=== PATIENT | male | born 1930 | race Caucasian/White ===

== ENCOUNTER 2017-03-13 05:23 | Emergency (ER) | payer MEDICARE, OTHER ==
[~2017-03-13] VITALS: Ht 177.8 cm; Wt 95.3 kg
--- OUTSIDE RECORDS SUMMARY | 2017-03-13 05:29 | XMS REPORT | Continuity of Care Document ---
Author Author [facility] Organization [facility] Address Unknown Phone Unavailable Allergies Medications Problems Procedures Results Encounters ACCT No. Visit Date/Time Discharge Status Pt. Type Provider Facility Loc./Unit Complaint [id number] 10/27/2013 09:48:00 2013 15:07:00 DIS Outpatient [id number] 03/13/2017 05:25:00 ACT Emergency LUCA ÁLVAREZ, NICOLLE Niño [facility] ER SICK X 5 DAYS,FEVERISH,COUGH
--- NOTE | 2017-03-13 05:46 | ED Fever ---
History of Present Illness General Stated Complaint: SICK X 5 DAYS,FEVERISH,COUGH Source: patient, family, EMS Exam Limitations: no limitations (NICOLLE CONNOLLY) History of Present Illness Time seen by provider: 05:33 Initial Comments Patient presents to ER by EMS with a chief complaint of shortness of breath and abdominal pain progressively worsening over the past 5 or 6 days. EMS reports they picked him up from the home and he was able to transfer the gurney with minimal assist. Blood pressure is elevated and they put an IV in him but were unable to get blood. He is on his home dose of 2 L oxygen by nasal cannula and satting in the mid 90s. He describes body aches, chills, cough that is productive of phlegm and mild shortness of breath on exertion. He denies chest pain but he says is had quite a bit of belly pain diffusely ever since he had some nausea and vomiting last to 3 days. He is also had 3 or 4 days ago several bowel movements that were not loose but since that time he's been anorexic and has not had any bowel movements in the last 2 days. Patient also states in the last several months she's lost about 25 pounds. He is on warfarin 5 mg a night and has some bruising all over his body secondary to that but denies any falls in the last year. (NICOLLE CONNOLLY) Allergies and Home Medications Allergies Coded Allergies: No Known Drug Allergies (Unverified , 03/13/17) Home Medications Amlodipine Besylate 10 Mg Tablet, 10 MG PO DAILY, (Reported) Diclofenac Sodium 75 Mg Tablet.dr, 75 MG PO BID, (Reported) Furosemide 20 Mg Tablet, 20 MG PO DAILY, (Reported) Warfarin Sodium 5 Mg Tablet, 5 MG PO DAILY, (Reported) Constitutional: chills, No diaphoresis, fever, malaise EENTM: No ear discharge, No ear pain Respiratory: cough, phlegm, short of breath, No wheezing Cardiovascular: No chest pain, No palpitations Gastrointestinal: abdominal pain, No constipation (diffusely), No diarrhea, nausea, vomiting Genitourinary: No discharge, No dysuria Musculoskeletal: No back pain, No joint pain Skin: No pruritus, No rash Psychiatric/Neurological: Denies Headache, Denies Numbness, Denies Paresthesia Hematologic/Lymphatic: Easy Bleeding, Easy Bruising (NICOLLE CONNOLLY) Past Buyitdq-Oftycc-Gigazf Hx Patient Social History Recent Foreign Travel: No Contact w/Someone Who Travel: No (NICOLLE CONNOLLY) Physical Exam Vital Signs Vital Sign - Last 12Hours 03/13/17 03/13/17 03/13/17 05:29 05:35 06:01 Temp 99.2 Pulse 104 Resp 20 B/P (MAP) 201/100 Pulse Ox 97 O2 Delivery Room Air O2 Flow Rate 2.00 (RUKHSANA SCOTT MD) Vital Signs Capillary Refill : (NICOLLE CONNOLLY) General Appearance: WD/WN, mild distress Eyes: Bilateral Eye Normal Inspection, Bilateral Eye PERRL, Bilateral Eye EOMI HEENT: PERRL/EOMI, normal ENT inspection, pharynx normal, other (hearing aids bilaterally) Neck: non-tender, full range of motion, normal inspection Respiratory: chest non-tender, no respiratory distress, no accessory muscle use , decreased breath sounds, other (coughing with clear phlegm) Cardiovascular: normal peripheral pulses, regular rate, rhythm, no murmur Gastrointestinal: normal bowel sounds, guarding, tenderness (all 4 quadrants) Extremities: non-tender, normal inspection, normal capillary refill Neurologic/Psychiatric: alert, oriented x 3 Skin: normal color, warm/dry (NICOLLE CONNOLLY) Focused Exam Evaluation Lactate Level Laboratory Tests 03/13/17 05:42: Lactic Acid Level 1.29 (RUKHSANA SCOTT MD) Lactic Acid Level Laboratory Tests Test 03/13/17 05:42 Lactic Acid Level 1.29 MMOL/L (0.50-2.00) (RUKHSANA SCOTT MD) Progress/Results/Core Measures Suspected Sepsis SIRS Temperature: Pulse: Respiratory Rate: Laboratory Tests 03/13/17 05:42: White Blood Count 9.1 Blood Pressure / Mean: Laboratory Tests 03/13/17 05:42: Lactic Acid Level 1.29 Laboratory Tests 03/13/17 05:42: Creatinine 0.85, INR Comment 1.6H, Platelet Count 203, Total Bilirubin 0.9 (NICOLLE CONNOLLY) Results/Orders Lab Results Laboratory Tests Test 03/13/17 05:38 03/13/17 05:42 Range/Units Urine Color YELLOW Urine Clarity CLEAR Urine pH 6 5-9 Urine Specific [place] 1.020 1.016-1.022 Urine Protein NEGATIVE NEGATIVE Urine Glucose (UA) NEGATIVE NEGATIVE Urine Ketones 2+ H NEGATIVE Urine Nitrite NEGATIVE NEGATIVE Urine Bilirubin NEGATIVE NEGATIVE Urine Urobilinogen 1 NORMAL MG/DL Urine Leukocyte Esterase NEGATIVE NEGATIVE Urine RBC (Auto) NEGATIVE NEGATIVE Urine RBC NONE /HPF Urine WBC RARE /HPF Urine Squamous Epithelial Cells RARE /HPF Urine Crystals NONE /LPF Urine Bacteria NEGATIVE /HPF Urine Casts NONE /LPF Urine Mucus SMALL H /LPF Urine Culture Indicated NO White Blood Count 9.1 4.3-11.0 10^3/uL Red Blood Count 4.10 L 4.35-5.85 10^6/uL Hemoglobin 13.2 L 13.3-17.7 G/DL Hematocrit 38 L 40-54 % Mean Corpuscular Volume 94 80-99 FL Mean Corpuscular Hemoglobin 32 25-34 PG Mean Corpuscular Hemoglobin Concent 34 32-36 G/DL Red Cell Distribution Width 14.1 10.0-14.5 % Platelet Count 203 130-400 10^3/uL Mean Platelet Volume 11.5 H 7.4-10.4 FL Neutrophils (%) (Auto) 59 42-75 % Lymphocytes (%) (Auto) 30 12-44 % Monocytes (%) (Auto) 9 0-12 % Eosinophils (%) (Auto) 2 0-10 % Basophils (%) (Auto) 1 0-10 % Neutrophils # (Auto) 5.3 1.8-7.8 X 10^3 Lymphocytes # (Auto) 2.7 1.0-4.0 X 10^3 Monocytes # (Auto) 0.8 0.0-1.0 X 10^3 Eosinophils # (Auto) 0.2 0.0-0.3 10^3/uL Basophils # (Auto) 0.1 0.0-0.1 10^3/uL Prothrombin Time 19.5 H 12.2-14.7 SEC INR Comment 1.6 H 0.8-1.4 Activated Partial Thromboplast Time 28 24-35 SEC Sodium Level 143 135-145 MMOL/L Potassium Level 3.8 3.6-5.0 MMOL/L Chloride Level 112 H 98-107 MMOL/L Carbon Dioxide Level 21 21-32 MMOL/L Anion Gap 10 5-14 MMOL/L Blood Urea Nitrogen 18 7-18 MG/DL Creatinine 0.85 0.60-1.30 MG/DL Estimat Glomerular Filtration Rate > 60 BUN/Creatinine Ratio 21 Glucose Level 100 70-105 MG/DL Lactic Acid Level 1.29 0.50-2.00 MMOL/L Calcium Level 8.1 L 8.5-10.1 MG/DL Total Bilirubin 0.9 0.1-1.0 MG/DL Aspartate Amino Transf (AST/SGOT) 28 5-34 U/L Alanine Aminotransferase (ALT/SGPT) 25 0-55 U/L Alkaline Phosphatase 98 40-136 U/L Total Creatine Kinase 78 30-200 U/L B-Type Natriuretic Peptide 96.0 <100.0 PG/ML Total Protein 5.8 L 6.4-8.2 GM/DL Albumin 3.0 L 3.2-4.5 GM/DL (RUKHSANA SCOTT MD) Micro Results Microbiology 03/13/17 Influenza Types A,B Antigen (OCTAVIO) - Final, Complete (RUKHSANA SCOTT MD) My Orders Orders - RUKHSANA SCOTT MD Dexamethasone Pf Injection (Decadron Pf (03/13/17 07:32) (RUKHSANA SOCTT MD) Medications Given in ED Current Medications Medications Dose Ordered Sig/Pasquale Route Start Time Stop Time Status Last Admin Dose Admin Albuterol/ Ipratropium 3 ml ONCE ONCE INH 03/13/17 05:45 03/13/17 05:46 DC 03/13/17 06:01 3 ML Sodium Chloride 50 ml @ ud STK-MED ONCE .ROUTE 03/13/17 05:44 03/13/17 05:54 DC 03/13/17 07:23 0 MLS/HR Sodium Chloride 500 ml @ 0 mls/hr Q0M ONCE IV 03/13/17 05:37 03/13/17 05:41 DC 03/13/17 05:59 0 MLS/HR (RUKHSANA SCOTT MD) Vital Signs/I&O Vital Sign - Last 12Hours 03/13/17 03/13/17 03/13/17 05:29 05:35 06:01 Temp 99.2 Pulse 104 Resp 20 B/P (MAP) 201/100 Pulse Ox 97 O2 Delivery Room Air Nasal Cannula Nasal Cannula O2 Flow Rate 2.00 2.00 (RUKHSANA SCOTT MD) Vital Signs/I&O Capillary Refill : (NICOLLE CONNOLLY) Progress Note : Time: 05:48 Progress Note Diffuse abdominal pain could be due to his recent nausea and bowel movements however its very exquisitely tender so we'll obtain CT abdomen without contrast. We'll start some fluids cautiously we'll get a BNP on him and CBC and lactate workup for possible sepsis. His upper respiratory symptoms may be explained by influenza or other viral illness. We'll grab a chest x-ray looking for possible pneumonia. (NICOLLE CONNOLLY) Progress Note : Progress Note 0 610: I assumed care of the patient from Dr. Connolly pending labs and CT. Patient is requesting this today but we currently don't have admission criteria. We will reevaluate after all data is complete. (RUKHSANA SCOTT MD) Diagnostic Imaging Diagonstic Imaging: CT Plain Films/CT/US/NM/MRI: abdomen, pelvis (c/O) Reviewed: Reviewed [place] Study, Reviewed by Me Diagonstic Imaging: Xray Plain Films/CT/US/NM/MRI: chest (1v) Reviewed: Reviewed by Me Comments Poor inspiratory effort. No acute cardio pulmonary processes. (NICOLLE CONNOLLY) Comments [facility] [place] NAME: GIULIANO RICKETTS [facility] REC#: [id number] PT STATUS: REG ER : 1930 PHYSICIAN: NICOLLE CONNOLLY MD ADMIT DATE: 03/13/17/ER Draft Date of Exam:03/13/17 CT ABDOMEN/PELVIS WO PROCEDURE: CT abdomen and pelvis without contrast. TECHNIQUE: Multiple contiguous axial images were obtained through the abdomen and pelvis without the use of intravenous contrast. INDICATION: Abdominal pain, flu symptoms. COMPARISON: None. FINDINGS: Lung bases are clear. There is mild cardiac enlargement. The gallbladder is surgically absent. There is a 4 cm cyst on the inferior pole of the left pelvic kidney. Otherwise, solid organs and vascular structures are unremarkable. Gallbladder is surgically absent. There are few diverticuli of the sigmoid colon without diverticulitis. There is no bowel obstruction, free air or free fluid. There is some minimal constipation in the distal colon. No inflammatory process is seen. Osseous structures are age-appropriate. No overt prostate enlargement is identified. IMPRESSION: 1. Surgically absent gallbladder. 2. Diverticulosis of the sigmoid colon without diverticulitis. 3. Mild constipation without obstruction. 4. Left pelvic kidney with 4 cm benign cyst. 5. 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 Agree with preliminary report. Dictated on workstation # [id number] Dict: 03/13/17 07 Trans: 03/13/17 [id number] [id number] Interpreted by: JOSEPH BARFIELD Electronically signed by: Comments [facility]. [place], [place] NAME: GIULIANO RICKETTS [facility] REC#: [id number] PT STATUS: REG ER : 1930 PHYSICIAN: NICOLLE CONNOLLY MD ADMIT DATE: 03/13/17/ER Draft Date of Exam:03/13/17 CHEST 1 VIEW, AP/PA ONLY INDICATION: Flulike symptoms. COMPARISON: None. FINDINGS: Single view of the chest demonstrates basilar atelectasis and trace effusion. The heart is prominent without pulmonary edema. There is no pneumothorax. IMPRESSION: Bibasilar atelectasis with trace effusion. Followup with 2 views recommended. Dictated on workstation # [id number] Dict: 03/13/17 0656 Trans: 03/13/17 07[facility] [id number] Interpreted by: JOSEPH BARFIELD Electronically signed by: (RUKHSANA SCOTT MD) Transfer of Care Transfer of Care Time: 06:10 Care transferred to: Jaime (NICOLLE CONNOLLY) Departure Impression Impression: Primary Impression: Upper respiratory infection Qualified Codes: J06.9 - Acute upper respiratory infection, unspecified Additional Impression: Fever Qualified Codes: R50.9 - Fever, unspecified Disposition: 01 HOME, SELF-CARE Condition: Improved Departure-Patient Inst. Decision time for Depature: 07:48 (RUKHSANA SCOTT MD) Referrals: GERALD ROJO MD (PCP) Primary Care Physician Patient Instructions: Bacterial Upper Respiratory Infection, Adult (DC), Sinusitis, Adult (DC) Add. Discharge Instructions: Take medications as directed. Follow-up with your tomorrow or next week for recheck and further evaluation. You do need to get a chest x-ray in the next week or so to recheck your lungs as there was a question of a small amount of atelectasis or fluid at the base of the lungs. No obvious pneumonia was noted though. Return for worse pain, fever, vomiting, weakness, breathing problems or other concerns as needed. Copy Copies To 1: GERALD ROJO MD, TITUS J Mar 13, 2017 05:46 RUKHSANA SCOTT MD Mar 13, 2017 07:46
[2017-03-13] MEDS: NS IV 500 ML 500 ML IV ONE (05:59)
[2017-03-13] MEDS: RT-ALBUTEROL/IPRATROPIUM 3 ML (DUONEB) VIAL INH ONE (06:01)
[2017-03-13] MEDS: RT-ALBUTEROL SULF 2.5 MG/3 ML PRE-MIX VIAL INH STA (06:01)
[2017-03-13 06:04] LABS: BASOPHILS # (AUTO) 0.1 10^3/uL (0.0-0.1); BASOPHILS % (AUTO) 1 % (0-10); EOSINOPHILS # (AUTO) 0.2 10^3/uL (0.0-0.3); EOSINOPHILS % (AUTO) 2 % (0-10); LYMPHOCYTES # (AUTO) 2.7 X 10^3 (1.0-4.0); LYMPHOCYTES % (AUTO) 30 % (12-44); MEAN CORPUSCULAR HEMOGLOBIN 32 PG (25-34); MEAN CORPUSCULAR HGB CONC 34 G/DL (32-36); MEAN CORPUSCULAR VOLUME 94 FL (80-99); MEAN PLATELET VOLUME 11.5 FL (7.4-10.4); MONOCYTES # (AUTO) 0.8 X 10^3 (0.0-1.0); MONOCYTES % (AUTO) 9 % (0-12); NEUTROPHILS # (AUTO) 5.3 X 10^3 (1.8-7.8); NEUTROPHILS % (AUTO) 59 % (42-75); PLATELET COUNT 203 10^3/uL (130-400); RED CELL DISTRIBUTION WIDTH 14.1 % (10.0-14.5); WHITE BLOOD COUNT 9.1 10^3/uL (4.3-11.0)
[2017-03-13 06:16] LABS: ALANINE AMINOTRANSFERASE 25 U/L (0-55); ANION GAP 10 MMOL/L (5-14); ASPARTATE AMINO TRANSFERASE 28 U/L (5-34); BILIRUBIN,TOTAL 0.9 MG/DL (0.1-1.0); BLOOD UREA NITROGEN 18 MG/DL (7-18); BUN/CREATININE RATIO 21; CALCIUM 8.1 MG/DL (8.5-10.1); CARBON DIOXIDE 21 MMOL/L (21-32); CHLORIDE 112 MMOL/L (98-107); CREATININE SERUM 0.85 MG/DL (0.60-1.30); GFR ESTIMATED > 60; GLUCOSE 100 MG/DL (70-105); POTASSIUM 3.8 MMOL/L (3.6-5.0); SODIUM 143 MMOL/L (135-145); TOTAL PROTEIN 5.8 GM/DL (6.4-8.2)
[2017-03-13 06:17] LABS: INR 1.6 (0.8-1.4); PROTHROMBIN TIME PATIENT 19.5 SEC (12.2-14.7)
[2017-03-13 06:18] LABS: BILIRUBIN,URINE NEGATIVE (NEGATIVE); KETONES,URINE 2+ (NEGATIVE); LEUKOCYTE ESTERASE ,URINE NEGATIVE (NEGATIVE); NITRITE,URINE NEGATIVE (NEGATIVE); PH,URINE 6 (5-9); PROTEIN,URINE NEGATIVE (NEGATIVE); UROBILINOGEN,URINE 1 MG/DL (NORMAL)
[2017-03-13 06:25] LABS: SQUAMOUS EPITHELIAL CELL,UR RARE /HPF; WBC,URINE RARE /HPF
--- NOTE | 2017-03-13 07:12 | Diagnostic Imaging Report ---
INDICATION: Flulike symptoms. COMPARISON: None. FINDINGS: Single view of the chest demonstrates basilar atelectasis and trace effusion. The heart is prominent without pulmonary edema. There is no pneumothorax. IMPRESSION: Bibasilar atelectasis with trace effusion. Followup with 2 views recommended. Dictated by: Dictated on workstation # [id number]
[2017-03-13] MEDS: NS (IVPB) 50 ML ONE (07:23)
[2017-03-13] MEDS: cefTRIAXone 1 GM (ROCEPHIN) VIAL IV STA (07:23)
[2017-03-13] MEDS ORDERED: WARF5TAB PO (07:32)
[2017-03-13] MEDS ORDERED: DEXAMETHASONE PF 10 MG/ML (DECADRON) VIAL IV STA (07:32)
[2017-03-13] MEDS ORDERED: DICL75TA2 PO (07:32)
[2017-03-13] MEDS ORDERED: FURO20TA4 PO (07:32)
[2017-03-13] MEDS ORDERED: AMLO10TA2 PO (07:32)
--- NOTE | 2017-03-13 07:34 | Diagnostic Imaging Report ---
PROCEDURE: CT abdomen and pelvis without contrast. TECHNIQUE: Multiple contiguous axial images were obtained through the abdomen and pelvis without the use of intravenous contrast. INDICATION: Abdominal pain, flu symptoms. COMPARISON: None. FINDINGS: Lung bases are clear. There is mild cardiac enlargement. The gallbladder is surgically absent. There is a 4 cm cyst on the inferior pole of the left pelvic kidney. Otherwise, solid organs and vascular structures are unremarkable. Gallbladder is surgically absent. There are few diverticuli of the sigmoid colon without diverticulitis. There is no bowel obstruction, free air or free fluid. There is some minimal constipation in the distal colon. No inflammatory process is seen. Osseous structures are age-appropriate. No overt prostate enlargement is identified. IMPRESSION: 1. Surgically absent gallbladder. 2. Diverticulosis of the sigmoid colon without diverticulitis. 3. Mild constipation without obstruction. 4. Left pelvic kidney with 4 cm benign cyst. 5. 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 Agree with preliminary report. Dictated by: Dictated on workstation # [id number]
[2017-03-13] MEDS: DEXAMETHASONE 10 MG/ML (DECADRON) 1 ML VIAL ONE (08:00)
[2017-03-13 08:23] VITALS: BP 161/91
== END 2017-03-13 08:23 | disposition home or self-care (01) ==
LOC: EDUNIT# 05:23 → ER 05:25
DX: J06.9 Acute upper respiratory infection, unspecified (principal); Z79.01 Long term (current) use of anticoagulants
CPT/HCPCS: 36415; 71010; 74176; 80053; 81000; 82550; 83605; 83880; 85025; 85610; 85730; 87040; 87804; 94640

== ENCOUNTER 2017-06-23 22:02 | Inpatient (IN) | payer MEDICARE, OTHER ==
[~2017-06-23] VITALS: Ht 172.7 cm; Wt 92.3 kg
[~2017-06-23 22:02] MED LIST: AMLO10TA2 PO; DICL75TA2 PO; FURO20TA4 PO; WARF5TAB PO
--- OUTSIDE RECORDS SUMMARY | 2017-06-23 22:07 | XMS REPORT | Continuity of Care Document ---
Author Author [facility] Organization [facility] Address Unknown Phone Unavailable Allergies Active Description Code Type Severity Reaction Onset Reported/Identified Relationship to Patient Clinical Status Yes No Known Drug Allergies [id number] Drug Allergy Unknown N/A 03/13/2017 Medications There is no data. Problems Date Dx Coded Attending Type Code Diagnosis Diagnosed By 03/13/2017 RUKHSANA SCOTT MD Ot J06.9 ACUTE UPPER RESPIRATORY INFECTION, UNSPE 03/13/2017 RUKHSANA SCOTT MD Ot R06.02 SHORTNESS OF BREATH 03/13/2017 RUKHSANA SCOTT MD Ot Z79.01 RESIDENTIAL (CURRENT) USE OF ANTICOAGULANT Procedures There is no data. Results Test Result Range Complete urinalysis with reflex to culture - 03/13/17 05:38 Urine color determination YELLOW NRG Urine clarity determination CLEAR NRG Urine pH measurement by test strip 6 5-9 Specific gravity of urine by test strip 1.020 1.016- 1.022 Urine protein assay by test strip, semi-quantitative NEGATIVE NEGATIVE Urine glucose detection by automated test strip NEGATIVE NEGATIVE Erythrocytes detection in urine sediment by light microscopy NEGATIVE NEGATIVE Urine ketones detection by automated test strip 2+ NEGATIVE Urine nitrite detection by test strip NEGATIVE NEGATIVE Urine total bilirubin detection by test strip NEGATIVE NEGATIVE Urine urobilinogen measurement by automated test strip (mass/volume) 1 mg/dL NORMAL Urine leukocyte esterase detection by dipstick NEGATIVE NEGATIVE Automated urine sediment erythrocyte count by microscopy (number/high power field) NONE NRG Automated urine sediment leukocyte count by microscopy (number/high power field ) RARE NRG Bacteria detection in urine sediment by light microscopy NEGATIVE NRG Squamous epithelial cells detection in urine sediment by light microscopy RARE NRG Crystals detection in urine sediment by light microscopy NONE NRG Casts detection in urine sediment by light microscopy NONE NRG Mucus detection in urine sediment by light microscopy SMALL NRG Complete urinalysis with reflex to culture NO NRG Complete blood count (CBC) with automated white blood cell (WBC) differential - 03/13/17 05:42 Blood leukocytes automated count (number/volume) 9.1 10*3/uL 4.3-11.0 Blood erythrocytes automated count (number/volume) 4.10 10*6/uL 4.35-5.85 Venous blood hemoglobin measurement (mass/volume) 13.2 g/dL 13.3-17.7 Blood hematocrit (volume fraction) 38 % 40-54 Automated erythrocyte mean corpuscular volume 94 [foz_us] 80-99 Automated erythrocyte mean corpuscular hemoglobin (mass per erythrocyte) 32 pg 25-34 Automated erythrocyte mean corpuscular hemoglobin concentration measurement ( mass/volume) 34 g/dL 32-36 Automated erythrocyte distribution width ratio 14.1 % 10.0-14.5 Automated blood platelet count (count/volume) 203 10*3/uL 130-400 Automated blood platelet mean volume measurement 11.5 [foz_us] 7.4-10.4 Automated blood neutrophils/100 leukocytes 59 % 42-75 Automated blood lymphocytes/100 leukocytes 30 % 12-44 Blood monocytes/100 leukocytes 9 % 0-12 Automated blood eosinophils/100 leukocytes 2 % 0-10 Automated blood basophils/100 leukocytes 1 % 0-10 Blood neutrophils automated count (number/volume) 5.3 10*3 1.8-7.8 Blood lymphocytes automated count (number/volume) 2.7 10*3 1.0-4.0 Blood monocytes automated count (number/volume) 0.8 10*3 0.0-1.0 Automated eosinophil count 0.2 10*3/uL 0.0-0.3 Automated blood basophil count (count/volume) 0.1 10*3/uL 0.0-0.1 Comprehensive metabolic panel - 03/13/17 05:42 Serum or plasma sodium measurement (moles/volume) 143 mmol/L 135-145 Serum or plasma potassium measurement (moles/volume) 3.8 mmol/L 3.6-5.0 Serum or plasma chloride measurement (moles/volume) 112 mmol/L 98-107 Carbon dioxide 21 mmol/L 21-32 Serum or plasma anion gap determination (moles/volume) 10 mmol/L 5-14 Serum or plasma urea nitrogen measurement (mass/volume) 18 mg/dL 7-18 Serum or plasma creatinine measurement (mass/volume) 0.85 mg/dL 0.60-1.30 Serum or plasma urea nitrogen/creatinine mass ratio 21 NRG Serum or plasma creatinine measurement with calculation of estimated glomerular filtration rate > NRG Serum or plasma glucose measurement (mass/volume) 100 mg/dL 70-105 Serum or plasma calcium measurement (mass/volume) 8.1 mg/dL 8.5-10.1 Serum or plasma total bilirubin measurement (mass/volume) 0.9 mg/dL 0.1-1.0 Serum or plasma alkaline phosphatase measurement (enzymatic activity/volume) 98 U/L 40-136 Serum or plasma aspartate aminotransferase measurement (enzymatic activity/ volume) 28 U/L 5-34 Serum or plasma alanine aminotransferase measurement (enzymatic activity/volume ) 25 U/L 0-55 Serum or plasma protein measurement (mass/volume) 5.8 g/dL 6.4-8.2 Serum or plasma albumin measurement (mass/volume) 3.0 g/dL 3.2-4.5 Blood lactic acid measurement (moles/volume) - 03/13/17 05:42 Blood lactic acid measurement (moles/volume) 1.29 mmol/L 0.50-2.00 PT panel in platelet poor plasma by coagulation assay - 03/13/17 05:42 Prothrombin time (PT) in platelet poor plasma by coagulation assay 19.5 s 12.2-14.7 INR in platelet poor plasma or blood by coagulation assay 1.6 0.8-1.4 Activated partial thromboplastin time (aPTT) in platelet poor plasma bycoagulation assay - 03/13/17 05:42 Activated partial thromboplastin time (aPTT) in platelet poor plasma bycoagulation assay 28 s 24-35 Serum or plasma creatine kinase measurement (enzymatic activity/volume) - 03/13 05:42 Serum or plasma creatine kinase measurement (enzymatic activity/volume) 78 U/L 30-200 Serum or plasma lithium measurement (moles/volume) - 03/13/17 05:42 BNP level 96.0 pg/mL <100.0 Bacterial blood culture - 03/13/17 05:42 QUANTITY OF GROWTH Isolated [facility] Bacterial blood culture [id number] [facility] Bacterial blood culture - 03/13/17 06:10 Bacterial blood culture NG [facility] Influenza virus A and B antigen detection - 03/13/17 06:46 FLU RESULT NEGATIVE FOR INFLUENZA A AND B ANTIGENS BY IA NRG Encounters ACCT No. Visit Date/Time Discharge Status Pt. Type Provider Facility Loc./Unit Complaint [id number] 03/13/2017 05:25:00 03/13/2017 08:23:00 DIS Emergency SONIA ÁLVAREZ, RUKHSANA [place] [facility] ER SICK X 5 DAYS,FEVERISH ,COUGH [id number] 10/27/2013 09:48:00 12/09/2013 15:07:00 DIS Outpatient
[2017-06-23 22:41] LABS: BILIRUBIN,URINE NEGATIVE (NEGATIVE); CLARITY,URINE CLEAR; COLOR,URINE YELLOW; GLUCOSE, URINE (UA) NEGATIVE (NEGATIVE); KETONES,URINE NEGATIVE (NEGATIVE); LEUKOCYTE ESTERASE ,URINE NEGATIVE (NEGATIVE); NITRITE,URINE NEGATIVE (NEGATIVE); PH,URINE 8 (5-9); PROTEIN,URINE NEGATIVE (NEGATIVE); UROBILINOGEN,URINE NORMAL (NORMAL)
[2017-06-23 22:44] LABS: BASOPHILS # (AUTO) 0.1 10^3/uL (0.0-0.1); BASOPHILS % (AUTO) 1 % (0-10); EOSINOPHILS # (AUTO) 0.3 10^3/uL (0.0-0.3); EOSINOPHILS % (AUTO) 4 % (0-10); HEMATOCRIT 35 % (40-54); HEMOGLOBIN 11.8 G/DL (13.3-17.7); LYMPHOCYTES # (AUTO) 1.5 X 10^3 (1.0-4.0); LYMPHOCYTES % (AUTO) 21 % (12-44); MEAN CORPUSCULAR HEMOGLOBIN 33 PG (25-34); MEAN CORPUSCULAR HGB CONC 34 G/DL (32-36); MEAN CORPUSCULAR VOLUME 98 FL (80-99); MEAN PLATELET VOLUME 10.4 FL (7.4-10.4); MONOCYTES # (AUTO) 1.1 X 10^3 (0.0-1.0); MONOCYTES % (AUTO) 15 % (0-12); NEUTROPHILS # (AUTO) 4.2 X 10^3 (1.8-7.8); NEUTROPHILS % (AUTO) 59 % (42-75); PLATELET COUNT 202 10^3/uL (130-400); RED CELL DISTRIBUTION WIDTH 13.8 % (10.0-14.5); WHITE BLOOD COUNT 7.2 10^3/uL (4.3-11.0)
[2017-06-23] MEDS ORDERED: RT-ALBUTEROL/IPRATROPIUM 3 ML (DUONEB) VIAL INH ONE (22:45)
[2017-06-23 22:49] LABS: BACTERIA,URINE NEGATIVE /HPF; RBC,URINE 0-2 /HPF
[2017-06-23 22:53] LABS: INR 2.1 (0.8-1.4); PROTHROMBIN TIME PATIENT 23.8 SEC (12.2-14.7)
[2017-06-23 22:54] LABS: ALANINE AMINOTRANSFERASE 47 U/L (0-55); ALBUMIN 3.2 GM/DL (3.2-4.5); ALKALINE PHOSPHATASE 153 U/L (40-136); BILIRUBIN,TOTAL 0.4 MG/DL (0.1-1.0); BUN/CREATININE RATIO 17; CALCIUM 8.6 MG/DL (8.5-10.1); CARBON DIOXIDE 24 MMOL/L (21-32); CHLORIDE 107 MMOL/L (98-107); GFR ESTIMATED > 60; GLUCOSE 115 MG/DL (70-105); POTASSIUM 4.5 MMOL/L (3.6-5.0); SODIUM 139 MMOL/L (135-145); TOTAL PROTEIN 6.1 GM/DL (6.4-8.2)
[2017-06-23] MEDS ORDERED: cefTRIAXone 1 GM (ROCEPHIN) VIAL ONE (23:43)
[2017-06-23] MEDS ORDERED: NS (IVPB) 50 ML ONE (23:43)
[2017-06-23] MEDS ORDERED: cefTRIAXone INJECTION 1,000 MG in NS (IVPB) 50 ML IV ONE (23:45)
[2017-06-23] MEDS ORDERED: FUROSEMIDE 40 MG/4 ML INJ (LASIX) IVP ONE (23:45)
[2017-06-23] MEDS ORDERED: methylPREDNISolone 125 MG (Solu-MEDROL) VIAL IVP ONE (23:45)
[2017-06-24] VITALS (9 sets, daily range): BP systolic 117–161; BP diastolic 60–80
--- OUTSIDE RECORDS SUMMARY | 2017-06-24 00:42 | XMS REPORT | Continuity of Care Document ---
Author Author [facility] Organization [facility] Address Unknown Phone Unavailable Allergies Active Description Code Type Severity Reaction Onset Reported/Identified Relationship to Patient Clinical Status Yes No Known Drug Allergies [id number] Drug Allergy Unknown N/A 03/13/2017 Medications There is no data. Problems Date Dx Coded Attending Type Code Diagnosis Diagnosed By 03/13/2017 RUKHSANA SCOTT MD Ot J06.9 ACUTE UPPER RESPIRATORY INFECTION, UNSPE 03/13/2017 RUKHSANA SCOTT MD Ot R06.02 SHORTNESS OF BREATH 03/13/2017 RUKHSANA SCOTT MD Ot Z79.01 RETIREMENT (CURRENT) USE OF ANTICOAGULANT Procedures There is [...] - 03/13/17 05:42 QUANTITY OF GROWTH Isolated [facility] Bacterial blood culture [id number] [facility] Bacterial blood culture - 03/13/17 06:10 Bacterial blood culture NG [facility] Influenza virus A and B antigen detection - 03/13/17 06:46 FLU RESULT NEGATIVE FOR INFLUENZA A AND B ANTIGENS BY IA [facility] Complete blood count (CBC) with automated white blood cell (WBC) differential - 06/23/17 22:14 Blood leukocytes automated count (number/volume) 7.2 10*3/uL 4.3-11.0 Blood erythrocytes automated count (number/volume) 3.60 10*6/uL 4.35-5.85 Venous blood hemoglobin measurement (mass/volume) 11.8 g/dL 13.3-17.7 Blood hematocrit (volume fraction) 35 % 40-54 Automated erythrocyte mean corpuscular volume 98 [foz_us] 80-99 Automated erythrocyte mean corpuscular hemoglobin (mass per erythrocyte) 33 pg 25-34 Automated erythrocyte mean corpuscular hemoglobin concentration measurement ( mass/volume) 34 g/dL 32-36 Automated erythrocyte distribution width ratio 13.8 % 10.0-14.5 Automated blood platelet count (count/volume) 202 10*3/uL 130-400 Automated blood platelet mean volume measurement 10.4 [foz_us] 7.4-10.4 Automated blood neutrophils/100 leukocytes 59 % 42-75 Automated blood lymphocytes/100 leukocytes 21 % 12-44 Blood monocytes/100 leukocytes 15 % 0-12 Automated blood eosinophils/100 leukocytes 4 % 0-10 Automated blood basophils/100 leukocytes 1 % 0-10 Blood neutrophils automated count (number/volume) 4.2 10*3 1.8-7.8 Blood lymphocytes automated count (number/volume) 1.5 10*3 1.0-4.0 Blood monocytes automated count (number/volume) 1.1 10*3 0.0-1.0 Automated eosinophil count 0.3 10*3/uL 0.0-0.3 Automated blood basophil count (count/volume) 0.1 10*3/uL 0.0-0.1 Blood lactic acid measurement (moles/volume) - 06/23/17 22:14 Blood lactic acid measurement (moles/volume) 1.22 mmol/L 0.50-2.00 Comprehensive metabolic panel - 06/23/17 22:14 Serum or plasma sodium measurement (moles/volume) 139 mmol/L 135-145 Serum or plasma potassium measurement (moles/volume) 4.5 mmol/L 3.6-5.0 Serum or plasma chloride measurement (moles/volume) 107 mmol/L 98-107 Carbon dioxide 24 mmol/L 21-32 Serum or plasma anion gap determination (moles/volume) 8 mmol/L 5-14 Serum or plasma urea nitrogen measurement (mass/volume) 19 mg/dL 7-18 Serum or plasma creatinine measurement (mass/volume) 1.10 mg/dL 0.60-1.30 Serum or plasma urea nitrogen/creatinine mass ratio 17 NRG Serum or plasma creatinine measurement with calculation of estimated glomerular filtration rate > NRG Serum or plasma glucose measurement (mass/volume) 115 mg/dL 70-105 Serum or plasma calcium measurement (mass/volume) 8.6 mg/dL 8.5-10.1 Serum or plasma total bilirubin measurement (mass/volume) 0.4 mg/dL 0.1-1.0 Serum or plasma alkaline phosphatase measurement (enzymatic activity/volume) 153 U/L 40-136 Serum or plasma aspartate aminotransferase measurement (enzymatic activity/ volume) 28 U/L 5-34 Serum or plasma alanine aminotransferase measurement (enzymatic activity/volume ) 47 U/L 0-55 Serum or plasma protein measurement (mass/volume) 6.1 g/dL 6.4-8.2 Serum or plasma albumin measurement (mass/volume) 3.2 g/dL 3.2-4.5 PT panel in platelet poor plasma by coagulation assay - 06/23/17 22:14 Prothrombin time (PT) in platelet poor plasma by coagulation assay 23.8 s 12.2-14.7 INR in platelet poor plasma or blood by coagulation assay 2.1 0.8-1.4 Activated partial thromboplastin time (aPTT) in platelet poor plasma bycoagulation assay - 06/23/17 22:14 Activated partial thromboplastin time (aPTT) in platelet poor plasma bycoagulation assay 42 s 24-35 Influenza virus A and B antigen detection - 06/23/17 22:14 FLU RESULT NEGATIVE FOR INFLUENZA A AND B ANTIGENS BY IA NR Magnesium - 06/23/17 22:14 Magnesium 2.0 mg/dL 1.8-2.4 Serum or plasma troponin i.cardiac measurement (mass/volume) - 06/23/17 22:14 Serum or plasma troponin i.cardiac measurement (mass/volume) < ng/ mL <0.30 Serum or plasma lithium measurement (moles/volume) - 06/23/17 22:14 BNP level 186.8 pg/mL <100.0 Complete urinalysis with reflex to culture - 06/23/17 22:27 Urine color determination YELLOW NRG Urine clarity determination CLEAR NRG Urine pH measurement by test strip 8 5-9 Specific gravity of urine by test strip 1.010 1.016- 1.022 Urine protein assay by test strip, semi-quantitative NEGATIVE NEGATIVE Urine glucose detection by automated test strip NEGATIVE NEGATIVE Erythrocytes detection in urine sediment by light microscopy NEGATIVE NEGATIVE Urine ketones detection by automated test strip NEGATIVE NEGATIVE Urine nitrite detection by test strip NEGATIVE NEGATIVE Urine total bilirubin detection by test strip NEGATIVE NEGATIVE Urine urobilinogen measurement by automated test strip (mass/volume) NORMAL NORMAL Urine leukocyte esterase detection by dipstick NEGATIVE NEGATIVE Automated urine sediment erythrocyte count by microscopy (number/high power field) [HPF] NRG Automated urine sediment leukocyte count by microscopy (number/high power field ) NONE NRG Bacteria detection in urine sediment by light microscopy NEGATIVE NRG Crystals detection in urine sediment by light microscopy NONE NRG Casts detection in urine sediment by light microscopy NONE NRG Mucus detection in urine sediment by light microscopy NEGATIVE NRG Complete urinalysis with reflex to culture NO NRG Encounters ACCT No. Visit Date/Time Discharge Status Pt. Type Provider Facility Loc./Unit Complaint [id number] 03/13/2017 05:25:00 03/13/2017 08:23:00 DIS Emergency SONIA ÁLVAREZ, RUKHSANA [facility] ER SICK X 5 DAYS,FEVERISH ,COUGH [id number] 10/27/2013 09:48:00 12/09/2013 15:07:00 DIS Outpatient [id number] 06/23/2017 22:46:00 Document Registration
[2017-06-24] MEDS ORDERED: methylPREDNISolone 125 MG (Solu-MEDROL) VIAL IVP SCH (06:00)
[2017-06-24] MEDS: FUROSEMIDE 40 MG/4 ML INJ (LASIX) IV SCH ×2 (06:23→11:25)
[2017-06-24 06:50] LABS: BASOPHILS % (AUTO) 0 % (0-10); EOSINOPHILS % (AUTO) 0 % (0-10); HEMATOCRIT 37 % (40-54); HEMOGLOBIN 12.4 G/DL (13.3-17.7); LYMPHOCYTES # (AUTO) 0.5 X 10^3 (1.0-4.0); LYMPHOCYTES % (AUTO) 8 % (12-44); MEAN CORPUSCULAR HEMOGLOBIN 33 PG (25-34); MEAN CORPUSCULAR HGB CONC 34 G/DL (32-36); MEAN CORPUSCULAR VOLUME 97 FL (80-99); MEAN PLATELET VOLUME 10.7 FL (7.4-10.4); MONOCYTES # (AUTO) 0.1 X 10^3 (0.0-1.0); MONOCYTES % (AUTO) 1 % (0-12); NEUTROPHILS # (AUTO) 5.4 X 10^3 (1.8-7.8); NEUTROPHILS % (AUTO) 90 % (42-75); PLATELET COUNT 201 10^3/uL (130-400); RED BLOOD COUNT 3.77 10^6/uL (4.35-5.85); RED CELL DISTRIBUTION WIDTH 13.7 % (10.0-14.5)
--- NOTE | 2017-06-24 06:54 | Diagnostic Imaging Report ---
INDICATION: Fever and shortness of breath. Comparison made with prior examination from 03/13/2017. FINDINGS: Heart size is normal. There is some left basilar atelectasis and/or pneumonitis. There is mild venous congestion. There is no pneumothorax. The mediastinum is unremarkable. IMPRESSION: Left basilar atelectasis and/or pneumonitis and mild central pulmonary venous congestion. Dictated by: Dictated on workstation # [id number]
[2017-06-24 07:07] LABS: ALANINE AMINOTRANSFERASE 50 U/L (0-55); ALBUMIN 3.4 GM/DL (3.2-4.5); ALKALINE PHOSPHATASE 161 U/L (40-136); BILIRUBIN,TOTAL 0.5 MG/DL (0.1-1.0); BUN/CREATININE RATIO 18; CALCIUM 8.8 MG/DL (8.5-10.1); CARBON DIOXIDE 25 MMOL/L (21-32); CHLORIDE 106 MMOL/L (98-107); CREATININE SERUM 1.12 MG/DL (0.60-1.30); GFR ESTIMATED > 60; GLUCOSE 165 MG/DL (70-105); SODIUM 140 MMOL/L (135-145); TOTAL PROTEIN 6.6 GM/DL (6.4-8.2)
[2017-06-24] MEDS ORDERED: RT-ALBUTEROL/IPRATROPIUM 3 ML (DUONEB) VIAL ONE (07:55)
--- NOTE | 2017-06-24 07:55 | Diagnostic Imaging Report ---
INDICATION: Pneumonia. Comparison made with prior examination 06/23/2017. FINDINGS: Heart size is normal. Mediastinum is unremarkable. There is some left basilar atelectasis and/or pneumonitis. There is a small left pleural effusion. There is no pneumothorax. Mediastinum is unremarkable. IMPRESSION: Left basilar atelectasis and/or pneumonitis and small left pleural effusion. Dictated by: Dictated on workstation # [id number]
[2017-06-24] MEDS: RT-ALBUTEROL/IPRATROPIUM 3 ML (DUONEB) VIAL INH SCH ×4 (08:06→19:56)
[2017-06-24] MEDS ORDERED: CATHETER FLUSH 10 ML SYR IV PRN (08:15)
[2017-06-24] MEDS ORDERED: ASPI-999 PO (08:15)
[2017-06-24] MEDS ORDERED: OMG1KC PO (08:16)
[2017-06-24] MEDS ORDERED: POLY17PO23 PO (08:17)
[2017-06-24] MEDS ORDERED: FURO20TA4 PO (08:17)
[2017-06-24] MEDS ORDERED: SERT25TA5 PO (08:18)
[2017-06-24] MEDS ORDERED: PANT40TA3 PO (08:18)
[2017-06-24] MEDS ORDERED: SIMV20TA3 PO (08:26)
[2017-06-24] MEDS ORDERED: GABA-488 PO (08:26)
[2017-06-24] MEDS ORDERED: METO50TA15 PO (08:27)
[2017-06-24] MEDS ORDERED: DORZ10DR OU (08:28)
[2017-06-24] MEDS ORDERED: WARF1TAB82 PO (08:29)
[2017-06-24] MEDS ORDERED: IPRA3AMP IH (08:30)
[2017-06-24] MEDS ORDERED: GUAI100L13 PO (08:32)
[2017-06-24] MEDS ORDERED: TIZA4CAP8 PO (08:33)
[2017-06-24] MEDS ORDERED: TRAM50TA2 PO (08:34)
[2017-06-24] MEDS ORDERED: ACET-93 PO (08:34)
[2017-06-24] MEDS ORDERED: ONDA4TAB11 PO (08:40)
[2017-06-24] MEDS ORDERED: MUPI15CR TP (08:41)
[2017-06-24] MEDS ORDERED: MENT71OI TP (08:42)
[2017-06-24] MEDS ORDERED: NYST15CR TP (08:43)
[2017-06-24] MEDS: DOXYCYCLINE INJECTION 100 MG in NS (IVPB) 100 ML IV SCH ×2 (09:25→21:02)
--- NOTE | 2017-06-24 09:58 | History & Physical-Hospitalist ---
HPI History of Present Illness: HPI/Chief Complaint Mr. Verma is a very pleasant 87-year-old white male although a very poor historian who was very difficult to keep on track and answering questions. He had no difficulty talking about the past but did repeat himself on several occasions during the interview. He apparently had a recent admission to [facility] for memory problems and I suspect delirium. He was vague about this. This followed a loss of his about a year ago. They had been living at home independently but it sounds as though his physical condition decline with her loss he states he still has not gotten over. Currently for at least the past week if not longer he had been battling cough congestion with initial purulent sputum production. He was doing a little better up until 72 hours ago when he noted increased shortness of breath and chest congestion. His sputum however remains reportedly clear to white in color without color or evidence for blood. He wasn't sure whether or not he had any chills or fever but had felt more short of breath. 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 He been on a round of antibiotics unknown with no emergency room report yet available. He denies any past history of congestive heart failure or coronary artery disease. He reports he has had pneumonia on 3 occasions in the past requiring hospitalization. He has not required past reported mechanical ventilation to his recollection. Date Seen 06/24/17 Time Seen by Provider: 09:15 Attending Physician Josue Garcia M.D. PCP Jadon Diggs MD Referring Physician Date of Admission Jun 24, 2017 at 00:15 Home Medications & Allergies Home Medications Reviewed patient Home Medication Reconciliation Form Allergies Allergies Coded Allergies No Known Drug Allergies ([place]aj53/16/17) Past Jtnxzwc-Gpurun-Lrwazv Hx Patient Social History Alcohol Use: Denies Use Recreational Drug Use: No Smoking Status: Never a Smoker Physical Abuse Screen: No Sexual Abuse: No Recent Foreign Travel: No Contact w/other who traveled: No Recent Hopitalizations: No Recent Infectious Disease Expo: No Immunizations Up To Date Date of Pneumonia Vaccine: Mar 27, 2015 Date of Influenza Vaccine: Feb 05, 2017 Seasonal Allergies Seasonal Allergies: No Surgeries Yes (heart cath with 2 stents, hernia) Abdominal, Eye Surgery, Gallbladder, Tonsillectomy, Vasectomy Respiratory Yes (chronic o2, URI, CHRONIC PULMONARY EDEMA) Cardiovascular Atrial Fibrillation, Coronary Artery Disease, High Cholesterol, Hypertension Genitourinary No Gastrointestinal Yes Gastroesophageal Reflux, Hemorrhoids Musculoskeletal Yes (OSTEOARTHRITIS, MUSCLE WEAKNESS, INFLAM POLYNEUROPATHY) Arthritis Endocrine History of Endocrine Disorders: No HEENT HEENT Disorders: Cataract, Glaucoma Cancer No Psychosocial History of Psychiatric Problem: Yes Behavioral Health Disorders: Anxiety, Depression Integumentary History of Skin or Integumenta: No Blood Transfusions History of Blood Disorders: No Family Medical History Family Hx: Patient reports no known family medical history. Review of Systems Constitutional: No no symptoms reported, No see HPI, chills, No diaphoresis, No dizziness, No fever, No malaise, weakness, No weight gain, No weight loss Respiratory: No no symptoms reported, see HPI, cough, dyspnea on exertion, No hemoptysis, No orthopnea, phlegm, short of breath, No stridor, wheezing, No other Cardiovascular: No no symptoms reported, No see HPI, chest pain (Left appears to be somewhat pleuritic in nature), edema, No Hx of Intervention, No palpitations, No syncope, vascular heart diseas, No other Physical Exam Physical Exam Vital Signs Vital Signs - First Documented 06/23/17 06/24/17 22:25 04:45 Temp 99.5 Pulse 83 Resp 20 B/P (MAP) 137/70 (92) Pulse Ox 98 O2 Delivery Nasal Cannula O2 Flow Rate 2.00 FiO2 28 Capillary Refill : Less Than 3 Seconds General Appearance: No Apparent Distress HEENT: PERRL/EOMI, Pharynx Normal Respiratory: No Accessory Muscle Use, No Respiratory Distress, Other (Coarse bibasilar rales noted deep breathing did result in a loose sounding nonproductive cough without wheezing) Cardiovascular: Regular Rate, Rhythm, No Gallop, No JVD, No Murmur, Normal Peripheral Pulses Gastrointestinal: Normal Bowel Sounds, No Organomegaly, No Pulsatile Mass, Non Tender, Soft Extremity: Other (2+ edema to the mid tibia noted with chronic venous insufficiency change and rather diffuse purpura without ulceration erythema or warmth.) Neurologic/Psychiatric: Alert, Other (Oriented 2) Results Results/Procedures Lab Laboratory Tests 06/23/17 22:14 06/24/17 05:45 Assessment/Plan Admission Diagnosis 1. Atypical pneumonia suspect viral etiology in an individual who may have baseline bronchiectasis from past bouts of pneumonia. For now will continue IV doxycycline only considering nonpurulent nature sputum and monitor. 2. History of paroxysmal atrial fibrillation on Coumadin and this will suffice for DVT prophylaxis. With edema and tissue paper thin skin not to mention suspicions for dementia SCDs relatively contraindicated. 3. Suspected dementia will hold some of his medication including gabapentin. 4. Considering advanced age and current sinus rhythm we will discontinue telemetry. 5. Doubt congestive heart failure considering a BNP level only a little over 100. Due to significant edema we'll give 1 more dose of IV diuretic today and then decrease to every morning daily. Will repeat electrolytes tomorrow. Admission Status: Inpatient Order (span 2 midnights) Clinical Quality Measures DVT/VTE Risk/Contraindication: Risk Factor Score Per Nursin RFS Level Per Nursing on Admit: 4+=Very High JOSUE GARCIA MD Jun 24, 2017 09:58
[2017-06-24] MEDS ORDERED: KCL 10 MEQ TAB (MICRO K) PO NR (10:30)
[2017-06-24] MEDS ORDERED: MAGNESIUM OXIDE (MAG-OX)400 MG TAB PO NR (10:30)
[2017-06-24] MEDS: ACETAMINOPHEN 500 MG TAB (TYLENOL) PO PRN ×2 (11:25→20:43)
[2017-06-24] MEDS: CATHETER FLUSH 10 ML SYR IV SCH ×2 (14:27→21:02)
[2017-06-24] MEDS: methylPREDNISolone 40 MG/ML (Solu-MEDROL) VIAL IV SCH ×2 (14:27→21:01)
[2017-06-24] MEDS: warFARin 5 MG (COUMADIN) TAB PO SCH (17:55)
[2017-06-24] MEDS: MAGNESIUM OXIDE (MAG-OX)400 MG TAB PO SCH (17:55)
[2017-06-24] MEDS: warFARin 1 MG (COUMADIN) TAB PO SCH (17:55)
[2017-06-24] MEDS: meTOprolol TARTRATE 50 MG (LOPRESSOR) TAB PO SCH (20:43)
[2017-06-24] MEDS: SIMvastatin 20 MG (ZOCOR) TAB PO SCH (20:43)
[2017-06-24] MEDS: DORZOLAMIDE 2% 10 ML BTL (TRUSOPT) OU SCH (20:44)
[2017-06-24] MEDS: MENTHOL/ZINC OXIDE (CALMOSEPTINE) 113 GM TUBE TP SCH ×2 (20:45→21:15)
[2017-06-24] MEDS: cefTRIAXone INJECTION 1,000 MG in NS (IVPB) 50 ML IV SCH (23:40)
[2017-06-25 03:01] VITALS: BP 127/60
[2017-06-25] MEDS: methylPREDNISolone 40 MG/ML (Solu-MEDROL) VIAL IV SCH (05:14)
[2017-06-25] MEDS: CATHETER FLUSH 10 ML SYR IV SCH ×3 (05:14→20:44)
[2017-06-25] MEDS: KCL 10 MEQ TAB (MICRO K) PO SCH (06:34)
[2017-06-25 08:00] VITALS: BP 139/79
[2017-06-25] MEDS: RT-ALBUTEROL/IPRATROPIUM 3 ML (DUONEB) VIAL INH SCH ×4 (08:26→19:16)
[2017-06-25] MEDS: DOXYCYCLINE 100 MG (VIBRAMYCIN) TABLET PO SCH ×2 (08:40→17:33)
[2017-06-25] MEDS: DOXYCYCLINE INJECTION 100 MG in NS (IVPB) 100 ML IV SCH (08:41)
[2017-06-25] MEDS: MAGNESIUM OXIDE (MAG-OX)400 MG TAB PO SCH ×2 (08:42→17:33)
[2017-06-25] MEDS: PANTOPRAZOLE 40 MG (PROTONIX) TAB PO SCH (08:42)
[2017-06-25] MEDS: FUROSEMIDE 40 MG/4 ML INJ (LASIX) IVP SCH (08:42)
[2017-06-25] MEDS: POLYETHYLENE GLYCOL 17 GM (MIRALAX) PACK PO SCH (08:42)
[2017-06-25] MEDS: DORZOLAMIDE 2% 10 ML BTL (TRUSOPT) OU SCH ×2 (08:42→20:44)
[2017-06-25] MEDS: meTOprolol TARTRATE 50 MG (LOPRESSOR) TAB PO SCH ×2 (08:44→20:44)
[2017-06-25] MEDS: MENTHOL/ZINC OXIDE (CALMOSEPTINE) 113 GM TUBE TP SCH ×2 (08:44→20:44)
--- NOTE | 2017-06-25 08:50 | Progress Note-Hospitalist ---
Subjective HPI/CC On Admission Date Seen by Provider: Jun 25, 2017 Time Seen by Provider: 08:40 Mr. Verma is a very pleasant 87-year-old white male although a very poor historian who was very difficult to keep on track and answering questions. He had no difficulty talking about the past but did repeat himself on several occasions during the interview. He apparently had a recent admission to [facility] for memory problems and I suspect delirium. He was vague about this. This followed a loss of his about a year ago. They had been living at home independently but it sounds as though his physical condition decline with her loss he states he still has not gotten over. Currently for at least the past week if not longer he had been battling cough congestion with initial purulent sputum production. He was doing a little better up until 72 hours ago when he noted increased shortness of breath and chest congestion. His sputum however remains reportedly clear to white in color without color or evidence for blood. He wasn't sure whether or not he had any chills or fever but had felt more short of breath. 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 He been on a round of antibiotics unknown with no emergency room report yet available. He denies any past history of congestive heart failure or coronary artery disease. He reports he has had pneumonia on 3 occasions in the past requiring hospitalization. He has not required past reported mechanical ventilation to his recollection. Subjective/Events-last exam Patient denies shortness of breath at rest. He did experience night sweats and did not sleep well last night. He denied Reiger's or chest pain. He has not had any sputum production with loose cough. Objective Exam Vital Signs Vital Signs Date Time Temp Pulse Resp B/P (MAP) Pulse Ox O2 Delivery O2 Flow Rate FiO2 06/23/17 22:25 99.5 83 20 137/70 (92) 98 06/23/17 22:25 Nasal Cannula 2.00 06/24/17 04:45 28 Capillary Refill : Less Than 3 Seconds General Appearance: No Apparent Distress, Obese Respiratory: No Accessory Muscle Use, No Respiratory Distress, Other (Chest clear anteriorly and posteriorly coarse rales and some rhonchi in both bases left greater than right no wheezing and no evidence for respiratory distress.) Assessment/Plan Assessment and Plan Assess & Plan/Chief Complaint 1. Atypical pneumonia by basilar with possible previous history of bronchiectasis from previous bouts of pneumonia. We'll continue doxycycline and Rocephin blood cultures negative. 2. 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 We will consult physical therapy. 3. History of paroxysmal atrial fibrillation continue Coumadin and check INR in a.m. JOSUE GARCIA MD Jun 25, 2017 08:50
[2017-06-25] MEDS ORDERED: predniSONE 20 MG TAB PO SCH (12:00)
--- NOTE | 2017-06-25 15:55 | Physical Therapy Evaluation ---
PT Evaluation-General Medical Diagnosis Admission Date Jun 24, 2017 at 13:58 Medical Diagnosis: OA right hip, deconditioning, pneumonia Onset Date: Jun 24, 2017 Therapy Diagnosis Therapy Diagnosis: impaired mobility, stength, endurance Height/Weight Height (Feet): 5 Height (Inches): 8.00 Weight (Pounds): 207 Weight (Ounces): 6.0 Precautions Precautions/Isolations: Fall Prevention, Standard Precautions Weight Bear Status Right Lower Extremity: Right Full Weight Bearing Left Lower Extremity: Left Full Weight Bearing USE FWW WHEN UP Referral Physician: Mauri Zavala MD Reason for Referral: Evaluation/Treatment Medical History Pertinent Medical History: Atrial Fib, CAD, GERD, HTN, OA Additional Medical History home O2, chronic pulmonary, edema, high cholesterol, hemorrhoids, muscle weakness, inflammatory polyneuropathy, cataracts, glaucoma, anxiety, depression , surg (heart cath with 2 stents, hernia, abdominal, eye, gallbladder, tonsillectomy, vasectomy) Current History patient went to the ER with pneumonia Reviewed History: Yes Social History Home: Fdc Entry Into Home: Ramp Prior/Core FIM Prior Level of Function Functional Johnston Measure 0=Not Assessed/NA 4=Minimal Assistance 1=Total Assistance 5=Supervision or Setup 2=Maximal Assistance 6=Modified Johnston 3=Moderate Assistance 7=Complete Johnston Bed Mobility: 6 Transfers (B,C,W/C) (FIM): 6 Patient states he uses a wheelchair most of the time at the skilled nursing PT Evaluation-Current Subjective Patient in bed pre tx, agrees to PT, has 8/10 pain in left hip and shoulder with activity. Pt/Family Goals to be more independent at home Objective Patient Orientation: Person, Confused Attachments: George Catheter ROM/Strength ROM Lower Extremities NT Strength Lower Extremities NT patient had very sensitive and painful legs and effective strength and ROM testing could not be completed Integumentary/Posture Integumentary swelling of legs bilaterally Bladder Incontinence: George Cath Neuromuscular (Tone, Coordination, Reflexes) NT Sensory Vision: Functional Hearing: Impaired Sensation Right Lower Extremit: Impaired Sensation Left Lower Extremity: Impaired Sensation Lower Extremities Patient seemed to have impaired sensation in his legs bilaterally below the knees Transfers Functional Johnston Measure 0=Not Assessed/NA 4=Minimal Assistance 1=Total Assistance 5=Supervision or Setup 2=Maximal Assistance 6=Modified Johnston 3=Moderate Assistance 7=Complete Johnston Transfers (B, C, W/C) (FIM): 3 Scootin Rollin Supine to/from Sit: 3 Sit to/from Stand: 4 Patient performs bed mobility with min assist and supine to sit with mod assist (needs assist with both legs). Sit to stand with min assist. Patient needs cues for hand placement and safety. He will turn way before being in the correct position. Gait Mode of Locomotion: Walk Anticipated Mode of Locomotion: Walk Gait (FIM): 1 Distance: 10' Gait Level of Assist: 4 Gait Persons Needed: 1 Gait Assistive Device: FWW Comments/Gait Description Patient does not like to use the professor of criminal justice on a rolling walker. He insists on using the front bar on the walker and the therapist has to keep the walker from tipping forward. Balance Sitting Static: Normal Sitting Dynamic: Normal Standing Static: Poor Standing Dynamic: Poor Treatment BLE supine exercises x10 (AP, HS, hip abd) Assessment/Needs Patient has impaired mobility, strength, endurance, poor safety awareness and confusion. Patient is at risk for a fall. Rehab Potential: Fair PT Short Term Goals Short Term Goals Time Frame: Jul 02, 2017 Transfers (B,C,W/C) (FIM): 5 Gait (FIM): 1 Gait Distance Comment: 20' Gait Level of Assist: 4 Gait Assistive Device: FWW PT Plan Problem List Problem List: Activity Tolerance, Functional Strength, Safety, Balance, Gait, Transfer, Bed Mobility, ROM Treatment/Plan Treatment Plan: Continue Plan of Care Treatment Plan: Bed Mobility, Education, Functional Activity Germán, Functional Strength, Gait, Safety, Therapeutic Exercise, Transfers Treatment Duration: Jul 02, 2017 Frequency: 6 times per week Estimated Hrs Per Day: .25 hour per day (15-30') Patient and/or Family Agrees t: Yes Safety Risks/Education Patient Education: Gait Training, Transfer Techniques, Correct Positioning, Safety Issues Teaching Recipient: Patient Teaching Methods: Demonstration, Discussion Response to Teaching: Reinforcement Needed Discharge Recommendations Plan Patient will perform bed mobility and transfer training, balance and endurance training, functional strengthening, stair training, gait training, and education , to improve functional mobility and independence at home. Therapy D/C Recommendations: Shelter (TCU/NH) Time/GCodes Time In: 1510 Time Out: 1528 Total Billed Treatment Time: 18 Total Billed Treatment 1 visit [facility] 18' JANEE SWIFT PT Jun 25, 2017 15:55
[2017-06-25 16:00] VITALS: BP 156/74
[2017-06-25] MEDS: warFARin 1 MG (COUMADIN) TAB PO SCH (17:33)
[2017-06-25] MEDS: warFARin 5 MG (COUMADIN) TAB PO SCH (17:33)
[2017-06-25] MEDS: SIMvastatin 20 MG (ZOCOR) TAB PO SCH (20:44)
[2017-06-26] MEDS: cefTRIAXone INJECTION 1,000 MG in NS (IVPB) 50 ML IV SCH (00:06)
[2017-06-26 00:25] VITALS: BP 134/72
[2017-06-26] MEDS: DOXYCYCLINE 100 MG (VIBRAMYCIN) TABLET PO SCH ×2 (06:28→17:57)
[2017-06-26] MEDS: KCL 10 MEQ TAB (MICRO K) PO SCH (06:28)
[2017-06-26] MEDS: CATHETER FLUSH 10 ML SYR IV SCH ×3 (06:28→22:27)
[2017-06-26] MEDS: RT-ALBUTEROL/IPRATROPIUM 3 ML (DUONEB) VIAL INH SCH ×4 (07:27→19:33)
[2017-06-26 08:30] VITALS: BP 155/70
[2017-06-26] MEDS: MAGNESIUM OXIDE (MAG-OX)400 MG TAB PO SCH (08:35)
[2017-06-26] MEDS: meTOprolol TARTRATE 50 MG (LOPRESSOR) TAB PO SCH ×2 (08:35→22:27)
[2017-06-26] MEDS: FUROSEMIDE 40 MG/4 ML INJ (LASIX) IVP SCH (08:35)
[2017-06-26] MEDS: PANTOPRAZOLE 40 MG (PROTONIX) TAB PO SCH (08:35)
[2017-06-26] MEDS: MENTHOL/ZINC OXIDE (CALMOSEPTINE) 113 GM TUBE TP SCH ×2 (08:36→22:29)
[2017-06-26] MEDS: POLYETHYLENE GLYCOL 17 GM (MIRALAX) PACK PO SCH (08:36)
--- NOTE | 2017-06-26 08:36 | Progress Note-Hospitalist ---
Subjective HPI/CC On Admission Date Seen by Provider: Jun 26, 2017 Time Seen by Provider: 08:30 Mr. Verma is a very pleasant 87-year-old white male although a very poor historian who was very difficult to keep on track and answering questions. He had no difficulty talking about the past but did repeat himself on several occasions during the interview. He apparently had a recent admission to [facility] for memory problems and I suspect delirium. He was vague about this. This followed a loss of his about a year ago. They had been living at home independently but it sounds as though his physical condition decline with her loss he states he still has not gotten over. Currently for at least the past week if not longer he had been battling cough congestion with initial purulent sputum production. He was doing a little better up until 72 hours ago when he noted increased shortness of breath and chest congestion. His sputum however remains reportedly clear to white in color without color or evidence for blood. He wasn't sure whether or not he had any chills or fever but had felt more short of breath. 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 He been on a round of antibiotics unknown with no emergency room report yet available. He denies any past history of congestive heart failure or coronary artery disease. He reports he has had pneumonia on 3 occasions in the past requiring hospitalization. He has not required past reported mechanical ventilation to his recollection. Subjective/Events-last exam Patient voices no complaints. Confused without agitation. He did have 5 loose stools but denies abdominal pain with no melena or bright red blood per rectum. He reports his appetite is good and nurse confirm good by mouth intake. He's had scant nonpurulent sputum production with decreasing shortness of breath. MAXIMUM TEMPERATURE 99.7. Objective Exam Vital Signs Vital Signs Date Time Temp Pulse Resp B/P (MAP) Pulse Ox O2 Delivery O2 Flow Rate FiO2 06/23/17 22:25 99.5 83 20 137/70 (92) 98 06/23/17 22:25 Nasal Cannula 2.00 06/24/17 04:45 28 Capillary Refill : Less Than 3 Seconds General Appearance: No Apparent Distress, Obese Respiratory: No Accessory Muscle Use, No Respiratory Distress, Other (By basilar rales with left basilar rhonchi improved from yesterday no wheezing noted) Cardiovascular: No Gallop, No JVD, No Murmur, Irregularly Irregular (Heart rate in the 70s) Extremity: Other (Decreasing bilateral lower extremity edema with chronic venous insufficiency change currently 1-2+ lower tibia bilaterally. Extremities are warm.) Assessment/Plan Assessment and Plan Assess & Plan/Chief Complaint 1. Atypical pneumonia by basilar with possible previous history of bronchiectasis from previous bouts of pneumonia. We'll continue doxycycline and Rocephin blood cultures negative. 2. 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 We will continue physical therapy. 3. History of paroxysmal atrial fibrillation continue Coumadin INR and BMP pending. 4. Likely antibiotic associated bowel habit change will stop magnesium if it is getting worse will need to check stool for C. difficile. For continued improvement we'll plan discharge tomorrow. 5. Dementia likely Alzheimer's. JOSUE GARCIA MD Jun 26, 2017 08:36
[2017-06-26] MEDS: DORZOLAMIDE 2% 10 ML BTL (TRUSOPT) OU SCH ×2 (08:39→22:28)
[2017-06-26 09:13] LABS: INR 2.6 (0.8-1.4); PROTHROMBIN TIME PATIENT 28.1 SEC (12.2-14.7)
[2017-06-26 09:14] LABS: BUN/CREATININE RATIO 32; CALCIUM 8.9 MG/DL (8.5-10.1); CARBON DIOXIDE 23 MMOL/L (21-32); CHLORIDE 104 MMOL/L (98-107); CREATININE SERUM 0.99 MG/DL (0.60-1.30); GFR ESTIMATED > 60; GLUCOSE 114 MG/DL (70-105); POTASSIUM 3.9 MMOL/L (3.6-5.0); SODIUM 140 MMOL/L (135-145)
--- NOTE | 2017-06-26 11:30 | Physical Therapy Daily Note ---
PT Daily Note-Current Subjective Patient c/o 6/10 right shoulder and hip pain. Pain Numeric Pain Scale: 6 Location: Right Location Body Site: Hip Pain Description: Chronic Mental Status Patient Orientation: Person, Time, Situation Transfers Functional [place] Measure 0=Not Assessed/NA 4=Minimal Assistance 1=Total Assistance 5=Supervision or Setup 2=Maximal Assistance 6=Modified [place] 3=Moderate Assistance 7=Complete IndependenceIRFPAI Quality Coding Scale 6 Independent with activity with or without an assistive device 5 Patient requires set up or clean up by helper. Patient completes activity by themselves 4 Supervision or touching assist (CGA). [place] provide cues , steadying assist 3 The helper provides less than half the effort to complete the activity 2 The helper provides more than half the effort to complete the activity 1 Dependent. The helper does all the effort to complete an activity 7 Patient refused to complete or attempt activity 9 The patient did not perform the activity before the current illness or injury 88 Not attempted due to Medical conditions or safety concerns Transfers (B, C, W/C) (FIM): 4 Scootin Sit to/from Stand: 4 Weight Bearing Right Lower Extremity: Right Full Weight Bearing Left Lower Extremity: Left Full Weight Bearing USE FWW WHEN UP Gait Training Gait (FIM): 1 Distance (FIM): 1=up to 49 ft Distance: 40' Gait Level of Assist: 4 Gait Assistive Device: FWW very slow, leans forearms on FWW, frequent standing recovery periods due to right hip pain. Assessment Patient is up in recliner with needs met. Patient tolerated treatment well and will dismiss to [place] tomorrow per patient report. PT Short Term Goals Short Term Goals Time Frame: Jul 02, 2017 Transfers (B,C,W/C) (FIM): 5 Gait (FIM): 1 Gait Distance Comment: 20' Gait Level of Assist: 4 Gait Assistive Device: FWW PT Plan Treatment/Plan Treatment Plan: Continue Plan of Care Treatment Plan: Bed Mobility, Education, Functional Activity Germán, Functional Strength, Gait, Safety, Therapeutic Exercise, Transfers Treatment Duration: Jul 02, 2017 Frequency: 6 times per week Estimated Hrs Per Day: .25 hour per day (15-30') Patient and/or Family Agrees t: Yes Time/GCodes Time In: 1050 Time Out: 1100 Total Billed Treatment Time: 10 Total Billed Treatment 1 visit GT 10 min BERENICE RODRIGUEZ PT Jun 26, 2017 11:29
[2017-06-26] MEDS: ACETAMINOPHEN 500 MG TAB (TYLENOL) PO PRN (14:31)
[2017-06-26 15:26] VITALS: BP 141/63
[2017-06-26] MEDS: warFARin 1 MG (COUMADIN) TAB PO SCH (17:57)
[2017-06-26] MEDS: warFARin 5 MG (COUMADIN) TAB PO SCH (17:57)
[2017-06-26] MEDS: SIMvastatin 20 MG (ZOCOR) TAB PO SCH (22:27)
[2017-06-27] MEDS ORDERED: CEFTRIAXONE IV SCH ×2
[2017-06-27] MEDS ORDERED: SODIUM CHLORIDE IV SCH ×2
[2017-06-27 00:45] VITALS: BP 138/68
[2017-06-27] MEDS: KCL 10 MEQ TAB (MICRO K) PO SCH (06:12)
[2017-06-27] MEDS: CATHETER FLUSH 10 ML SYR IV SCH ×3 (06:12→21:48)
[2017-06-27] MEDS: DOXYCYCLINE 100 MG (VIBRAMYCIN) TABLET PO SCH ×2 (06:12→17:26)
[2017-06-27] MEDS: RT-ALBUTEROL/IPRATROPIUM 3 ML (DUONEB) VIAL INH SCH ×4 (06:58→19:58)
[2017-06-27 08:00] VITALS: BP 148/70
[2017-06-27] MEDS: POLYETHYLENE GLYCOL 17 GM (MIRALAX) PACK PO SCH (08:53)
[2017-06-27] MEDS: meTOprolol TARTRATE 50 MG (LOPRESSOR) TAB PO SCH ×2 (08:59→20:27)
[2017-06-27] MEDS: PANTOPRAZOLE 40 MG (PROTONIX) TAB PO SCH (08:59)
[2017-06-27] MEDS: FUROSEMIDE 40 MG/4 ML INJ (LASIX) IVP SCH (08:59)
[2017-06-27] MEDS: DORZOLAMIDE 2% 10 ML BTL (TRUSOPT) OU SCH ×2 (09:03→20:27)
[2017-06-27] MEDS: MENTHOL/ZINC OXIDE (CALMOSEPTINE) 113 GM TUBE TP SCH ×2 (09:04→20:28)
[2017-06-27] MEDS ORDERED: DOXY100C2 PO (11:58)
[2017-06-27] MEDS: RT-ALBUTEROL SULF 2.5 MG/3 ML PRE-MIX VIAL INH PRN ×2 (12:30→15:12)
--- NOTE | 2017-06-27 12:39 | Progress Note-Hospitalist ---
Subjective HPI/CC On Admission Date Seen by Provider: Jun 27, 2017 Time Seen by Provider: 12:00 Mr. Verma is a very pleasant 87-year-old white male although a very poor historian who was very difficult to keep on track and answering questions. He had no difficulty talking about the past but did repeat himself on several occasions during the interview. He apparently had a recent admission to [facility] for memory problems and I suspect delirium. He was vague about this. This followed a loss of his about a year ago. They had been living at home independently but it sounds as though his physical condition decline with her loss he states he still has not gotten over. Currently for at least the past week if not longer he had been battling cough congestion with initial purulent sputum production. He was doing a little better up until 72 hours ago when he noted increased shortness of breath and chest congestion. His sputum however remains reportedly clear to white in color without color or evidence for blood. He wasn't sure whether or not he had any chills or fever but had felt more short of breath. 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 He been on a round of antibiotics unknown with no emergency room report yet available. He denies any past history of congestive heart failure or coronary artery disease. He reports he has had pneumonia on 3 occasions in the past requiring hospitalization. He has not required past reported mechanical ventilation to his recollection. Subjective/Events-last exam mr. Verma was doing well up until the last hour or so when he became nauseated but denied vomiting. He reports feeling lightheaded denies chest pain does note some epigastric discomfort. He's had no reported melena or bright red blood per rectum or diarrhea. He is vague on timing. In talking with his nurse he was well this morning ate a large breakfast without difficulty and was not oted to be wheezing. His O2 had been taken off due to levels well above 90. He reports he is cough with scant amount of clear phlegm only in the last 24 hours and a little this morning. He has no difficulty talking about the past but poor recollection short-term. Objective Exam Vital Signs Vital Signs Date Time Temp Pulse Resp B/P (MAP) Pulse Ox O2 Delivery O2 Flow Rate FiO2 06/23/17 22:25 99.5 83 20 137/70 (92) 98 06/23/17 22:25 Nasal Cannula 2.00 06/24/17 04:45 28 Capillary Refill : Less Than 3 Seconds General Appearance: Chronically ill, Mild Distress Neck: Normal Inspection Respiratory: No Accessory Muscle Use, No Respiratory Distress, Wheezing, Other (sounding nonproductive cough with diffuse wheezing inspiratory and expiratory) Cardiovascular: Regular Rate, Rhythm, No Edema, No Gallop, No JVD, No Murmur, Normal Peripheral Pulses Gastrointestinal: Normal Bowel Sounds, No Organomegaly, No Pulsatile Mass, Soft , Tenderness (the epigastrium and right and left upper quadrants of the abdomenwithout rebound or guarding.) Extremity: Other (1+ edema to the mid tibia with chronic venous insufficiency change. No ulceration or erythema noted.) Assessment/Plan Assessment and Plan Assess & Plan/Chief Complaint 1. Atypical pneumonia by basilar with rather abrupt exacerbation of reactive airways following a very large breakfast. While the patient denies vomiting does report significant nausea and dementia with poor short-term memory makes history is somewhat suspect. Clearly aspirations in the differential. I had planned on discharging the patient today that we'll have to hold this now. We' ll obtain a chest x-ray repeat a CBC CMP and BNP. Will hold doxycycline the patient has been taking orally for at least the past 3 days. . 2. 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 We will continue physical therapy. 3. History of paroxysmal atrial fibrillation continue Coumadin INR and BMP pending. 4. Likely antibiotic associated bowel habit change with decrease in stool output the last 24 hours 5. Dementia likely Alzheimer's. JOSUE GARCIA MD Jun 27, 2017 12:39
[2017-06-27] MEDS: predniSONE 10 MG TAB PO SCH (12:51)
[2017-06-27] MEDS: ONDANSETRON 4 MG (ZOFRAN) ORAL DISSOLVE TAB PO PRN (12:51)
[2017-06-27 13:12] LABS: BASOPHILS % (AUTO) 0 % (0-10); EOSINOPHILS % (AUTO) 1 % (0-10); HEMATOCRIT 38 % (40-54); HEMOGLOBIN 12.9 G/DL (13.3-17.7); LYMPHOCYTES # (AUTO) 1.5 X 10^3 (1.0-4.0); LYMPHOCYTES % (AUTO) 17 % (12-44); MEAN CORPUSCULAR HEMOGLOBIN 33 PG (25-34); MEAN CORPUSCULAR HGB CONC 34 G/DL (32-36); MEAN CORPUSCULAR VOLUME 96 FL (80-99); MEAN PLATELET VOLUME 10.3 FL (7.4-10.4); MONOCYTES # (AUTO) 1.1 X 10^3 (0.0-1.0); MONOCYTES % (AUTO) 12 % (0-12); NEUTROPHILS % (AUTO) 70 % (42-75); PLATELET COUNT 219 10^3/uL (130-400); RED BLOOD COUNT 3.94 10^6/uL (4.35-5.85); RED CELL DISTRIBUTION WIDTH 13.6 % (10.0-14.5); WHITE BLOOD COUNT 8.7 10^3/uL (4.3-11.0)
[2017-06-27 13:30] LABS: ALANINE AMINOTRANSFERASE 58 U/L (0-55); ALBUMIN 3.4 GM/DL (3.2-4.5); ALKALINE PHOSPHATASE 125 U/L (40-136); BILIRUBIN,TOTAL 0.9 MG/DL (0.1-1.0); BUN/CREATININE RATIO 28; CALCIUM 8.4 MG/DL (8.5-10.1); CARBON DIOXIDE 28 MMOL/L (21-32); CHLORIDE 102 MMOL/L (98-107); CREATININE SERUM 0.97 MG/DL (0.60-1.30); GFR ESTIMATED > 60; GLUCOSE 107 MG/DL (70-105); SODIUM 140 MMOL/L (135-145); TOTAL PROTEIN 6.3 GM/DL (6.4-8.2)
--- NOTE | 2017-06-27 13:56 | Physical Therapy Daily Note ---
PT Daily Note-Current Subjective Pt laying Supine in bed upon arrival. Pt agrees to PT. Pain Numeric Pain Scale: 10-Worst Possible Pain Location: Left Location Body Site: Shoulder Pain Description: Ache Mental Status Patient Orientation: Person, Place, Situation Transfers Functional [place] Measure 0=Not Assessed/NA 4=Minimal Assistance 1=Total Assistance 5=Supervision or Setup 2=Maximal Assistance 6=Modified [place] 3=Moderate Assistance 7=Complete IndependenceIRFPAI Quality Coding Scale 6 Independent with activity with or without an assistive device 5 Patient requires set up or clean up by helper. Patient completes activity by themselves 4 Supervision or touching assist ([facility]). [place] provide cues , steadying assist 3 The helper provides less than half the effort to complete the activity 2 The helper provides more than half the effort to complete the activity 1 Dependent. The helper does all the effort to complete an activity 7 Patient refused to complete or attempt activity 9 The patient did not perform the activity before the current illness or injury 88 Not attempted due to Medical conditions or safety concerns Weight Bearing Right Lower Extremity: Right Full Weight Bearing Left Lower Extremity: Left Full Weight Bearing USE FWW WHEN UP Exercises Supine Ex: Ankle pumps, Quad Set, Heel Slides, Straight leg raise, Hip abd/add Supine Reps: 15 Treatments Pt completes Supine Ex in bed with a couple of rest breaks. Pt & OBJECTS CONSERVATOR discuss how pt is feeling and pt transfers to BSC at [facility] then back to bed. Pt resting Supine in bed at end of tx with all needs met. Assessment Current Status: Good Progress Pt not feeling as good today as he did yesterday. PT Short Term Goals Short Term Goals Time Frame: Jul 02, 2017 Transfers (B,C,W/C) (FIM): 5 Gait (FIM): 1 Gait Distance Comment: 20' Gait Level of Assist: 4 Gait Assistive Device: FWW PT Plan Problem List Problem List: Activity Tolerance, Functional Strength, Safety, Balance, Gait, Transfer Treatment/Plan Treatment Plan: Continue Plan of Care Treatment Plan: Bed Mobility, Education, Functional Activity Germán, Functional Strength, Gait, Safety, Therapeutic Exercise, Transfers Treatment Duration: Jul 02, 2017 Frequency: 6 times per week Estimated Hrs Per Day: .25 hour per day (15-30') Patient and/or Family Agrees t: Yes Safety Risks/Education Patient Education: Transfer Techniques, Correct Positioning Teaching Recipient: Patient Teaching Methods: Discussion Response to Teaching: Verbalize Understanding Time/GCodes Time In: 1022 Time Out: 1045 Total Billed Treatment 1, FA (10m) & EX (13m) GERARDO STATON PTA Jun 27, 2017 13:56
[2017-06-27 15:30] VITALS: BP 139/64
[2017-06-27] MEDS: warFARin 1 MG (COUMADIN) TAB PO SCH (17:26)
[2017-06-27] MEDS: warFARin 5 MG (COUMADIN) TAB PO SCH (17:26)
[2017-06-27] MEDS: SIMvastatin 20 MG (ZOCOR) TAB PO SCH (20:27)
[2017-06-28] VITALS: BP 155/68
[2017-06-28] MEDS: DOXYCYCLINE 100 MG (VIBRAMYCIN) TABLET PO SCH ×2 (06:22→17:29)
[2017-06-28] MEDS: KCL 10 MEQ TAB (MICRO K) PO SCH (06:22)
[2017-06-28] MEDS: CATHETER FLUSH 10 ML SYR IV SCH ×3 (06:23→20:21)
[2017-06-28] MEDS: RT-ALBUTEROL/IPRATROPIUM 3 ML (DUONEB) VIAL INH SCH ×4 (06:52→19:14)
[2017-06-28 08:00] VITALS: BP 157/72
[2017-06-28] MEDS: PANTOPRAZOLE 40 MG (PROTONIX) TAB PO SCH (08:11)
[2017-06-28] MEDS: meTOprolol TARTRATE 50 MG (LOPRESSOR) TAB PO SCH ×2 (08:11→20:21)
[2017-06-28] MEDS: POLYETHYLENE GLYCOL 17 GM (MIRALAX) PACK PO SCH (08:12)
[2017-06-28] MEDS: MENTHOL/ZINC OXIDE (CALMOSEPTINE) 113 GM TUBE TP SCH ×2 (08:12→20:23)
[2017-06-28] MEDS: DORZOLAMIDE 2% 10 ML BTL (TRUSOPT) OU SCH ×2 (08:12→20:21)
--- NOTE | 2017-06-28 11:10 | Progress Note-Hospitalist ---
Progress Note HPI/CC on Admission Mr. Verma is a very pleasant 87-year-old white male although a very poor historian who was very difficult to keep on track and answering questions. He had no difficulty talking about the past but did repeat himself on several occasions during the interview. He apparently had a recent admission to [facility] for memory problems and I suspect delirium. He was vague about this. This followed a loss of his about a year ago. They had been living at home independently but it sounds as though his physical condition decline with her loss he states he still has not gotten over. Currently for at least the past week if not longer he had been battling cough congestion with initial purulent sputum production. He was doing a little better up until 72 hours ago when he noted increased shortness of breath and chest congestion. His sputum however remains reportedly clear to white in color without color or evidence for blood. He wasn't sure whether or not he had any chills or fever but had felt more short of breath. 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 He been on a round of antibiotics unknown with no emergency room report yet available. He denies any past history of congestive heart failure or coronary artery disease. He reports he has had pneumonia on 3 occasions in the past requiring hospitalization. He has not required past reported mechanical ventilation to his recollection. Progress Notes/Assess & Plan Date Seen 06/28/17 Time Seen by Provider: 10:30 Diagonsis/Assessment & Plan Patient doing much better but dislikes nebulizer treatments Staying over the weekend for physical therapy and working on debility I know him from the senior behavioral unit at [facility] due to dementia related behavior problems Feeling otherwise okay Bowels are moving Denies any pain No fever, vital signs stable, pleasant, improved Regular rate and rhythm, coarse breath sounds and wheezing all cisse but no tachypnea and good air movement No edema 1. Atypical pneumonia by basilar with rather abrupt exacerbation of reactive airway disease 2. 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 We will continue physical therapy. 3. History of paroxysmal atrial fibrillation continue Coumadin INR and BMP tomorrow. 4. Likely antibiotic associated bowel habit change with decrease in stool output the last 24 hours 5. Dementia likely Alzheimer's. Plan: Continue therapy Monitor labs Continue nebulizers JACQUELINE MAHMOOD DO Jun 28, 2017 11:10
[2017-06-28] MEDS: predniSONE 10 MG TAB PO SCH (11:25)
--- NOTE | 2017-06-28 14:07 | Physical Therapy Daily Note ---
PT Daily Note-Current Subjective Pt reports dyspnea as his primary issue. Mental Status Patient Orientation: Person, Place, Time, Situation Transfers Functional [place] Measure 0=Not Assessed/NA 4=Minimal Assistance 1=Total Assistance 5=Supervision or Setup 2=Maximal Assistance 6=Modified [place] 3=Moderate Assistance 7=Complete IndependenceIRFPAI Quality Coding Scale 6 Independent with activity with or without an assistive device 5 Patient requires set up or clean up by helper. Patient completes activity by themselves 4 Supervision or touching assist (CGA). [place] provide cues , steadying assist 3 The helper provides less than half the effort to complete the activity 2 The helper provides more than half the effort to complete the activity 1 Dependent. The helper does all the effort to complete an activity 7 Patient refused to complete or attempt activity 9 The patient did not perform the activity before the current illness or injury 88 Not attempted due to Medical conditions or safety concerns Transfers (B, C, W/C) (FIM): 3 Scootin Rollin Supine to/from Sit: 3 Sit to/from Stand: 3 Weight Bearing Right Lower Extremity: Right Full Weight Bearing Left Lower Extremity: Left Full Weight Bearing USE FWW WHEN UP Gait Training Distance (FIM): 1=up to 49 ft Distance: 12ft Gait Level of Assist: 2 Gait Persons Needed: 1 Gait Assistive Device: FWW Very weak, with legs giving out after 6ft. Exercises Supine Ex: LE Protocol Supine Reps: 20 Assist needed with all exercises. Assessment Pt is very weak, but was willing to participate. Needs to continue with exercises and attempting to ambulate. PT Short Term Goals Short Term Goals Time Frame: Jul 02, 2017 Transfers (B,C,W/C) (FIM): 5 Gait (FIM): 1 Gait Distance Comment: 20' Gait Level of Assist: 4 Gait Assistive Device: FWW PT Plan Treatment/Plan Treatment Plan: Continue Plan of Care Treatment Plan: Bed Mobility, Education, Functional Activity Germán, Functional Strength, Gait, Safety, Therapeutic Exercise, Transfers Treatment Duration: Jul 02, 2017 Frequency: 6 times per week Estimated Hrs Per Day: .25 hour per day (15-30') Patient and/or Family Agrees t: Yes Time/GCodes Time In: 0850 Time Out: 0905 Total Billed Treatment Time: 15 Total Billed Treatment 1, ex 15 TAYLER CONTRERAS PT Jun 28, 2017 14:06
[2017-06-28 15:25] VITALS: BP 152/70
[2017-06-28] MEDS: warFARin 5 MG (COUMADIN) TAB PO SCH (17:29)
[2017-06-28] MEDS: warFARin 1 MG (COUMADIN) TAB PO SCH (17:29)
[2017-06-28] MEDS: SIMvastatin 20 MG (ZOCOR) TAB PO SCH (20:21)
[2017-06-28] MEDS: guaiFENesin/DM (ROBITUSSIN DM) 10 ML UDC PO PRN (20:21)
[2017-06-29] VITALS: BP 141/71
[2017-06-29] MEDS: ACETAMINOPHEN 500 MG TAB (TYLENOL) PO PRN (00:27)
[2017-06-29 04:29] LABS: BASOPHILS % (AUTO) 0 % (0-10); EOSINOPHILS % (AUTO) 0 % (0-10); HEMATOCRIT 33 % (40-54); HEMOGLOBIN 11.3 G/DL (13.3-17.7); LYMPHOCYTES # (AUTO) 1.4 X 10^3 (1.0-4.0); LYMPHOCYTES % (AUTO) 19 % (12-44); MEAN CORPUSCULAR HEMOGLOBIN 33 PG (25-34); MEAN CORPUSCULAR HGB CONC 34 G/DL (32-36); MEAN CORPUSCULAR VOLUME 95 FL (80-99); MEAN PLATELET VOLUME 10.7 FL (7.4-10.4); MONOCYTES # (AUTO) 0.6 X 10^3 (0.0-1.0); MONOCYTES % (AUTO) 8 % (0-12); NEUTROPHILS # (AUTO) 5.5 X 10^3 (1.8-7.8); NEUTROPHILS % (AUTO) 73 % (42-75); PLATELET COUNT 184 10^3/uL (130-400); RED BLOOD COUNT 3.48 10^6/uL (4.35-5.85); RED CELL DISTRIBUTION WIDTH 12.9 % (10.0-14.5); WHITE BLOOD COUNT 7.5 10^3/uL (4.3-11.0)
[2017-06-29 04:46] LABS: ALANINE AMINOTRANSFERASE 41 U/L (0-55); ALKALINE PHOSPHATASE 111 U/L (40-136); BILIRUBIN,TOTAL 0.8 MG/DL (0.1-1.0); BUN/CREATININE RATIO 33; CALCIUM 8.3 MG/DL (8.5-10.1); CARBON DIOXIDE 24 MMOL/L (21-32); CHLORIDE 108 MMOL/L (98-107); GFR ESTIMATED > 60; GLUCOSE 104 MG/DL (70-105); POTASSIUM 4.1 MMOL/L (3.6-5.0); SODIUM 138 MMOL/L (135-145); TOTAL PROTEIN 5.4 GM/DL (6.4-8.2)
[2017-06-29] MEDS: CATHETER FLUSH 10 ML SYR IV SCH ×3 (05:35→21:36)
[2017-06-29] MEDS: DOXYCYCLINE 100 MG (VIBRAMYCIN) TABLET PO SCH ×2 (05:35→17:01)
[2017-06-29] MEDS: guaiFENesin/DM (ROBITUSSIN DM) 10 ML UDC PO PRN ×2 (05:35→17:01)
[2017-06-29] MEDS: KCL 10 MEQ TAB (MICRO K) PO SCH (05:35)
[2017-06-29] MEDS: RT-ALBUTEROL/IPRATROPIUM 3 ML (DUONEB) VIAL INH SCH ×4 (07:42→19:22)
[2017-06-29 08:00] VITALS: BP 152/73
[2017-06-29] MEDS: PANTOPRAZOLE 40 MG (PROTONIX) TAB PO SCH (08:01)
[2017-06-29] MEDS: MENTHOL/ZINC OXIDE (CALMOSEPTINE) 113 GM TUBE TP SCH ×2 (08:02→21:35)
[2017-06-29] MEDS: meTOprolol TARTRATE 50 MG (LOPRESSOR) TAB PO SCH ×2 (08:02→21:33)
[2017-06-29] MEDS: POLYETHYLENE GLYCOL 17 GM (MIRALAX) PACK PO SCH (08:02)
[2017-06-29] MEDS: DORZOLAMIDE 2% 10 ML BTL (TRUSOPT) OU SCH ×2 (08:02→21:33)
[2017-06-29] MEDS: predniSONE 10 MG TAB PO SCH (11:22)
--- NOTE | 2017-06-29 11:47 | Progress Note-Hospitalist ---
Progress Note HPI/CC on Admission Mr. Verma is a very pleasant 87-year-old white male although a very poor historian who was very difficult to keep on track and answering questions. He had no difficulty talking about the past but did repeat himself on several occasions during the interview. He apparently had a recent admission to [facility] for memory problems and I suspect delirium. He was vague about this. This followed a loss of his about a year ago. They had been living at home independently but it sounds as though his physical condition decline with her loss he states he still has not gotten over. Currently for at least the past week if not longer he had been battling cough congestion with initial purulent sputum production. He was doing a little better up until 72 hours ago when he noted increased shortness of breath and chest congestion. His sputum however remains reportedly clear to white in color without color or evidence for blood. He wasn't sure whether or not he had any chills or fever but had felt more short of breath. 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 He been on a round of antibiotics unknown with no emergency room report yet available. He denies any past history of congestive heart failure or coronary artery disease. He reports he has had pneumonia on 3 occasions in the past requiring hospitalization. He has not required past reported mechanical ventilation to his recollection. Progress Notes/Assess & Plan Date Seen 06/29/17 Time Seen by Provider: 10:30 Diagonsis/Assessment & Plan Pt doing well Gets up in chair with meals Ready for [facility] DC tomorrow CXR no changes Requiring O2 No fever, vital signs stable, pleasant, improved Regular rate and rhythm, coarse breath sounds and wheezing all cisse but no tachypnea and good air movement No edema 1. Atypical pneumonia by basilar with rather abrupt exacerbation of reactive airway disease 2. 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 We will continue physical therapy. 3. History of paroxysmal atrial fibrillation continue Coumadin INR and BMP tomorrow. 4. Likely antibiotic associated bowel habit change with decrease in stool output the last 24 hours 5. Dementia likely Alzheimer's. Plan: Continue therapy Check labs Continue nebulizers DC to [place] tomorrow JACQUELINE MAHMOOD DO Jun 29, 2017 11:47
--- NOTE | 2017-06-29 11:58 | Diagnostic Imaging Report ---
INDICATION: Cough and wheezing. PA and lateral views of the chest are obtained. Comparison is made to study of 06/24/2017. FINDINGS: Heart size and pulmonary vascularity are within normal limits. Linear atelectasis and/or scarring is noted in the left lung base. There is no consolidation or pneumothorax appreciated. There is advanced degenerative change in the shoulders, greater on the left. IMPRESSION: Linear atelectasis or scarring in left lung base. No acute abnormality is appreciated. Dictated by: Dictated on workstation # [id number]
[2017-06-29 12:23] LABS: INR 2.8 (0.8-1.4); PROTHROMBIN TIME PATIENT 29.6 SEC (12.2-14.7)
[2017-06-29 16:05] VITALS: BP 167/86
[2017-06-29] MEDS: warFARin 5 MG (COUMADIN) TAB PO SCH (17:01)
[2017-06-29] MEDS: warFARin 1 MG (COUMADIN) TAB PO SCH (17:01)
[2017-06-29] MEDS: SIMvastatin 20 MG (ZOCOR) TAB PO SCH (21:33)
[2017-06-30 00:15] VITALS: BP 142/70
[2017-06-30] MEDS: CATHETER FLUSH 10 ML SYR IV SCH (06:06)
[2017-06-30] MEDS: KCL 10 MEQ TAB (MICRO K) PO SCH (06:45)
[2017-06-30] MEDS: DOXYCYCLINE 100 MG (VIBRAMYCIN) TABLET PO SCH (06:50)
[2017-06-30] MEDS: RT-ALBUTEROL/IPRATROPIUM 3 ML (DUONEB) VIAL INH SCH (07:05)
[2017-06-30 08:00] VITALS: BP 168/80
[2017-06-30] MEDS: PANTOPRAZOLE 40 MG (PROTONIX) TAB PO SCH (08:33)
[2017-06-30] MEDS: ONDANSETRON 4 MG (ZOFRAN) ORAL DISSOLVE TAB PO PRN (08:33)
[2017-06-30] MEDS: DORZOLAMIDE 2% 10 ML BTL (TRUSOPT) OU SCH (08:33)
[2017-06-30] MEDS: MENTHOL/ZINC OXIDE (CALMOSEPTINE) 113 GM TUBE TP SCH (08:33)
[2017-06-30] MEDS: meTOprolol TARTRATE 50 MG (LOPRESSOR) TAB PO SCH (08:33)
[2017-06-30] MEDS: POLYETHYLENE GLYCOL 17 GM (MIRALAX) PACK PO SCH (08:34)
[2017-06-30] MEDS: ACETAMINOPHEN 500 MG TAB (TYLENOL) PO PRN (09:01)
--- NOTE | 2017-06-30 11:36 | Physical Therapy Daily Note ---
PT Daily Note-Current Subjective Patient agrees to PT. He reports his bottom is sore. Pain Numeric Pain Scale: 4 Location: Soft Tissue Location Body Site: Sacrum Pain Description: Ache, Pressure Mental Status Patient Orientation: Confused Transfers Functional [place] Measure 0=Not Assessed/NA 4=Minimal Assistance 1=Total Assistance 5=Supervision or Setup 2=Maximal Assistance 6=Modified [place] 3=Moderate Assistance 7=Complete IndependenceIRFPAI Quality Coding Scale 6 Independent with activity with or without an assistive device 5 Patient requires set up or clean up by helper. Patient completes activity by themselves 4 Supervision or touching assist (CGA). [place] provide cues , steadying assist 3 The helper provides less than half the effort to complete the activity 2 The helper provides more than half the effort to complete the activity 1 Dependent. The helper does all the effort to complete an activity 7 Patient refused to complete or attempt activity 9 The patient did not perform the activity before the current illness or injury 88 Not attempted due to Medical conditions or safety concerns Transfers (B, C, W/C) (FIM): 3 Scootin Rollin Supine to/from Sit: 3 Sit to/from Stand: 3 Bed to/from Chair: 4 Patient ambulated 10' then returned to bed with sidelying left to relieve gluteal/sacral pressure. RN notified of patient c/o. Weight Bearing Right Lower Extremity: Right Full Weight Bearing Left Lower Extremity: Left Full Weight Bearing USE FWW WHEN UP Gait Training Gait (FIM): 1 Distance (FIM): 1=up to 49 ft Distance: 10' Gait Level of Assist: 4 Gait Persons Needed: 1 Gait Assistive Device: FWW trunk flexed, antalgic gait sequence Assessment Patient is in bed and side lying left with pillows behind back and between LE's to relieve pressure. Plan dismissal on this date to [place]. PT Short Term Goals Short Term Goals Time Frame: Jul 02, 2017 Transfers (B,C,W/C) (FIM): 5 Gait (FIM): 1 Gait Distance Comment: 20' Gait Level of Assist: 4 Gait Assistive Device: FWW PT Plan Treatment/Plan Treatment Plan: Continue Plan of Care Treatment Plan: Bed Mobility, Education, Functional Activity Germán, Functional Strength, Gait, Safety, Therapeutic Exercise, Transfers Treatment Duration: Jul 02, 2017 Frequency: 6 times per week Estimated Hrs Per Day: .25 hour per day (15-30') Patient and/or Family Agrees t: Yes Time/GCodes Time In: 1100 Time Out: 1108 Total Billed Treatment Time: 8 Total Billed Treatment 1 visit FA 8 min BERENICE RODRIGUEZ PT Jun 30, 2017 11:35
[2017-06-30] MEDS: predniSONE 10 MG TAB PO SCH (12:27)
[2017-06-30] MEDS ORDERED: RT-ALBUTEROL/IPRATROPIUM 3 ML (DUONEB) VIAL INH SCH (14:00)
[2017-06-30] MEDS: guaiFENesin/DM (ROBITUSSIN DM) 10 ML UDC PO PRN (14:21)
--- NOTE | 2017-06-30 14:44 | Discharge Summary-Hospitalist ---
Diagnosis/Chief Complaint Date of Admission Jun 24, 2017 at 13:58 Date of Discharge Discharge Date: Jun 30, 2017 Admission Diagnosis 1. Atypical pneumonia suspect viral etiology in an individual who may have baseline bronchiectasis from past bouts of pneumonia. For now will continue IV doxycycline only considering nonpurulent nature sputum and monitor. 2. History of paroxysmal atrial fibrillation on Coumadin and this will suffice for DVT prophylaxis. With edema and tissue paper thin skin not to mention suspicions for dementia SCDs relatively contraindicated. 3. Suspected dementia will hold some of his medication including gabapentin. 4. Considering advanced age and current sinus rhythm we will discontinue telemetry. 5. Doubt congestive heart failure considering a BNP level only a little over 100. Due to significant edema we'll give 1 more dose of IV diuretic today and then decrease to every morning daily. Will repeat electrolytes tomorrow. Discharge Diagnosis 1. Atypical pneumonia- complete doxycycline as outpatient 2. History of paroxysmal atrial fibrillation on Coumadin- rate controlled 3. Suspected dementia- short term recall is poor Discharge Summary Discharge Physical Examination Allergies: Coded Allergies: No Known Drug Allergies (Unverified , 03/13/17) Vitals & I&Os Vital Signs Date Time Temp Pulse Resp B/P (MAP) Pulse Ox O2 Delivery O2 Flow Rate FiO2 06/30/17 15:00 65 18 158/88 94 Room Air 06/30/17 10:25 21 06/30/17 08:00 2.00 06/30/17 08:00 98.4 Hospital Course Pt admitted to the hospital for pneumonia likely due to atypical pathogen. He was treated with doxycycline and improved. He was able to be titrated off oxygen and was doing well. He was requesting DC on day of discharge and was ready to go back to the [facility]. Labs (last 24 hrs) Microbiology 06/23/17 Blood Culture - Final, Complete No growth 06/28/17 Gram Stain - Final, Complete 06/28/17 Sputum Culture - Final, Complete Usual/normal tanner isolated. Discussion & Recommendations Discharge Planning: >30 minutes discharge planning Discharge Home Medications: Active Scripts Active Doxycycline Hyclate 100 Mg Capsule 100 Mg PO BID 5 Days Reported Nystatin 15 Gm Cream..g. 15 Gm TP BID PRN Calmoseptine Ointment (Menthol/Lanolin/Calamine/Znox) 71 Gm Oint 71 Gm TP BID Bactroban (Mupirocin Calcium) 15 Gm Cream..g. 15 Gm TP HS Ondansetron Odt (Ondansetron) 4 Mg Tab.rapdis 4 Mg PO Q6H PRN Tramadol HCl 50 Mg Tablet 100 Mg PO Q6H PRN Acetaminophen 500 Mg Tablet 500 Mg PO Q6H PRN Tizanidine HCl 4 Mg Capsule 4 Mg PO DAILY PRN Guaifenesin 100 Mg/5 Ml Liquid 200 Mg PO Q4H PRN Iprat-Albut 0.5-3(2.5) mg/3 ml (Ipratropium/Albuterol Sulfate) 3 Ml Ampul.neb 3 Ml IH Q4H Warfarin Sodium 1 Mg Tablet 1 Mg PO DAILY Trusopt (Dorzolamide HCl) 10 Ml Drops 1 Drop OU BID Metoprolol Tartrate 50 Mg Tablet 50 Mg PO BID Simvastatin 20 Mg Tablet 20 Mg PO DAILY Sertraline HCl 25 Mg Tablet 25 Mg PO DAILY Pantoprazole Sodium 40 Mg Tablet.dr 40 Mg PO DAILY Polyethylene Glycol 3350 17 Gm Powd.pack 17 Gm PO DAILY Furosemide 20 Mg Tablet 20 Mg PO EVERY OTHER DAY Fish Oil 1,000 mg Capsule ([place] 3 Polyunsat Fatty Acids) 1,000 Mg Cap 1,000 Mg PO DAILY Aspirin 81 Mg Tab.chew 81 Mg PO DAILY Coumadin (Warfarin Sodium) 5 Mg Tablet 5 Mg PO DAILY Amlodipine Besylate 10 Mg Tablet 10 Mg PO DAILY Diclofenac Sodium 75 Mg Tablet.dr 75 Mg PO BID Instructions to patient/family Please see electronic discharge instructions given to patient. Clinical Quality Measures DVT/VTE Risk/Contraindication: Risk Factor Score Per Nursin RFS Level Per Nursing on Admit: 4+=Very High Copy Copies To 1: GERALD ROJO MD, KATELYN M MD Jun 30, 2017 14:44
[2017-06-30 15:00] VITALS: BP 158/88
--- OUTSIDE RECORDS SUMMARY | 2017-07-01 12:00 | XMS REPORT | Continuity of Care Document ---
Author Author [facility] Organization [facility] Address Unknown Phone Unavailable Allergies Active Description Code Type Severity Reaction Onset Reported/Identified Relationship to Patient Clinical Status Yes No Known Drug Allergies [id number] Drug Allergy Unknown N/A 03/13/2017 Medications There is no data. 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 12/09/2013 GERALD ROJO MD, Ot V57.1 PHYSICAL THERAPY NEC 03/13/2017 RUKHSANA SCOTT MD Ot J06.9 ACUTE UPPER RESPIRATORY INFECTION, UNSPE 03/13/2017 RUKHSANA SCOTT MD Ot R06.02 SHORTNESS OF BREATH 03/13/2017 RUKHSANA SCOTT MD Ot Z79.01 [employer] (CURRENT) USE OF ANTICOAGULANT 06/26/2017 ADILIA YANCEY MD Ot E78.00 PURE HYPERCHOLESTEROLEMIA, UNSPECIFIED 06/26/2017 ADILIA YANCEY MD Ot F03.90 UNSPECIFIED DEMENTIA WITHOUT BEHAVIORAL 06/26/2017 ADILIA YANCEY MD Ot F32.9 MAJOR DEPRESSIVE DISORDER, SINGLE EPISOD 06/26/2017 ADILIA YANCEY MD, Ot F41.9 ANXIETY DISORDER, UNSPECIFIED 06/26/2017 ADILIA YANCEY MD Ot 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, UNSPECIFIED 06/26/2017 ADILIA YANCEY MD Ot H40.9 UNSPECIFIED GLAUCOMA 06/26/2017 ADILIA YANCEY MD Ot I10 ESSENTIAL (PRIMARY) HYPERTENSION 06/26/2017 ADILIA YANCEY MD Ot I25.10 ATHSCL HEART DISEASE OF [place] CORONARY 06/26/2017 ADILIA YANCEY MD Ot I48.0 PAROXYSMAL ATRIAL FIBRILLATION 06/26/2017 ADILIA YANCEY MD Ot I87.2 VENOUS INSUFFICIENCY (CHRONIC) (PERIPHER 06/26/2017 ADILIA YANCEY MD, Ot J18.9 PNEUMONIA, UNSPECIFIED ORGANISM 06/26/2017 ADILIA YANCEY MD Ot J81.1 CHRONIC PULMONARY EDEMA 06/26/2017 ADILIA YANCEY MD Ot K21.9 GASTRO-ESOPHAGEAL REFLUX DISEASE WITHOUT 06/26/2017 ADILIA YANCEY MD, Ot M16.12 UNILATERAL PRIMARY OSTEOARTHRITIS, LEFT 06/26/2017 ADILIA YANCEY MD Ot M19.012 PRIMARY OSTEOARTHRITIS, LEFT SHOULDER 06/26/2017 ADILIA YANCEY MD Ot R61 GENERALIZED HYPERHIDROSIS 06/26/2017 ADILIA YANCEY MD Ot Z77.22 CNTCT W AND EXPSR TO ENVIRON TOBACCO SMO 06/26/2017 ADILIA YANCEY MD Ot Z79.01 CORRECTION (CURRENT) USE OF ANTICOAGULANT 06/26/2017 ADILIA YANCEY MD Ot Z87.09 PERSONAL HISTORY OF OTHER DISEASES OF TH 06/26/2017 ADILIA YANCEY MD Ot Z95.5 PRESENCE OF CORONARY ANGIOPLASTY IMPLANT 06/26/2017 ADILIA YANCEY MD Ot Z99.81 DEPENDENCE ON SUPPLEMENTAL OXYGEN 06/27/2017 ADILIA YANCEY MD Ot E78.00 PURE HYPERCHOLESTEROLEMIA, UNSPECIFIED 06/27/2017 ADILIA YANCEY MD Ot F03.90 UNSPECIFIED DEMENTIA WITHOUT BEHAVIORAL 06/27/2017 ADILIA YANCEY MD Ot F32.9 MAJOR DEPRESSIVE DISORDER, SINGLE EPISOD 06/27/2017 ADILIA YANCEY MD Ot F41.9 ANXIETY DISORDER, UNSPECIFIED 06/27/2017 ADILIA YANCEY MD Ot 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, UNSPECIFIED 06/27/2017 ADILIA YANCEY MD Ot H40.9 UNSPECIFIED GLAUCOMA 06/27/2017 ADILIA YANCEY MD Ot I10 ESSENTIAL (PRIMARY) HYPERTENSION 06/27/2017 ADILIA YANCEY MD Ot I25.10 ATHSCL HEART DISEASE OF [place] CORONARY 06/27/2017 ADILIA YANCEY MD Ot I48.0 PAROXYSMAL ATRIAL FIBRILLATION 06/27/2017 ADILIA YANCEY MD Ot I87.2 VENOUS INSUFFICIENCY (CHRONIC) (PERIPHER 06/27/2017 ADILIA YANCEY MD Ot J18.9 PNEUMONIA, UNSPECIFIED ORGANISM 06/27/2017 ADILIA YANCEY MD, Ot J81.1 CHRONIC PULMONARY EDEMA 06/27/2017 ADILIA YANCEY MD, Ot K21.9 GASTRO-ESOPHAGEAL REFLUX DISEASE WITHOUT 06/27/2017 ADILIA YANCEY MD Ot M16.12 UNILATERAL PRIMARY OSTEOARTHRITIS, LEFT 06/27/2017 ADILIA YANCEY MD Ot M19.012 PRIMARY OSTEOARTHRITIS, LEFT SHOULDER 06/27/2017 ADILIA YANCEY MD Ot R61 GENERALIZED HYPERHIDROSIS 06/27/2017 ADILIA YANCEY MD Ot Z77.22 CNTCT W AND EXPSR TO ENVIRON TOBACCO SMO 06/27/2017 ADILIA YANCEY MD, Ot Z79.01 CORRECTION (CURRENT) USE OF ANTICOAGULANT 06/27/2017 ADILIA YANCEY MD, Ot Z87.09 PERSONAL HISTORY OF OTHER DISEASES OF TH 06/27/2017 ADILIA YANCEY MD Ot Z95.5 PRESENCE OF CORONARY ANGIOPLASTY IMPLANT 06/27/2017 ADILIA YANCEY MD Ot Z99.81 DEPENDENCE ON SUPPLEMENTAL OXYGEN 06/28/2017 ADILIA YANCEY MD Ot E78.00 PURE HYPERCHOLESTEROLEMIA, UNSPECIFIED 06/28/2017 ADILIA YANCEY MD Ot F03.90 UNSPECIFIED DEMENTIA WITHOUT BEHAVIORAL 06/28/2017 ADILIA YANCEY MD Ot F32.9 MAJOR DEPRESSIVE DISORDER, SINGLE EPISOD 06/28/2017 ADILIA YANCEY MD Ot F41.9 ANXIETY DISORDER, UNSPECIFIED 06/28/2017 ADILIA YANCEY MD Ot 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, UNSPECIFIED 06/28/2017 ADILIA YANCEY MD Ot H40.9 UNSPECIFIED GLAUCOMA 06/28/2017 ADILIA YANCEY MD Ot I10 ESSENTIAL (PRIMARY) HYPERTENSION 06/28/2017 ADILIA YANCEY MD Ot I25.10 ATHSCL HEART DISEASE OF [place] CORONARY 06/28/2017 ADILIA YANCEY MD Ot I48.0 PAROXYSMAL ATRIAL FIBRILLATION 06/28/2017 ADILIA YANCEY MD Ot I87.2 VENOUS INSUFFICIENCY (CHRONIC) (PERIPHER 06/28/2017 ADILIA YANCEY MD Ot J18.9 PNEUMONIA, UNSPECIFIED ORGANISM 06/28/2017 ADILIA YANCEY MD Ot J81.1 CHRONIC PULMONARY EDEMA 06/28/2017 ADILIA YANCEY MD Ot K21.9 GASTRO-ESOPHAGEAL REFLUX DISEASE WITHOUT 06/28/2017 ADILIA YANCEY MD, Ot M16.12 UNILATERAL PRIMARY OSTEOARTHRITIS, LEFT 06/28/2017 ADILIA YANCEY MD Ot M19.012 PRIMARY OSTEOARTHRITIS, LEFT SHOULDER 06/28/2017 ADILIA YANCEY MD Ot R61 GENERALIZED HYPERHIDROSIS 06/28/2017 ADILIA YANCEY MD Ot Z77.22 CNTCT W AND EXPSR TO ENVIRON TOBACCO SMO 06/28/2017 ADILIA YANCEY MD Ot Z79.01 CORRECTION (CURRENT) USE OF ANTICOAGULANT 06/28/2017 ADILIA YANCEY MD Ot Z87.09 PERSONAL HISTORY OF OTHER DISEASES OF TH 06/28/2017 ADILIA YANCEY MD Ot Z95.5 PRESENCE OF CORONARY ANGIOPLASTY IMPLANT 06/28/2017 ADILIA YANCEY MD Ot Z99.81 DEPENDENCE ON SUPPLEMENTAL OXYGEN 06/29/2017 ADILIA YANCEY MD Ot E78.00 PURE HYPERCHOLESTEROLEMIA, UNSPECIFIED 06/29/2017 ADILIA YANCEY MD Ot F03.90 UNSPECIFIED DEMENTIA WITHOUT BEHAVIORAL 06/29/2017 ADILIA YANCEY MD Ot F32.9 MAJOR DEPRESSIVE DISORDER, SINGLE EPISOD 06/29/2017 ADILIA YANCEY MD Ot F41.9 ANXIETY DISORDER, UNSPECIFIED 06/29/2017 ADILIA YANCEY MD Ot 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, UNSPECIFIED 06/29/2017 ADILIA YANCEY MD Ot H40.9 UNSPECIFIED GLAUCOMA 06/29/2017 ADILIA YANCEY MD Ot I10 ESSENTIAL (PRIMARY) HYPERTENSION 06/29/2017 ADILIA YANCEY MD Ot I25.10 ATHSCL HEART DISEASE OF [place] CORONARY 06/29/2017 ADILIA YANCEY MD Ot I48.0 PAROXYSMAL ATRIAL FIBRILLATION 06/29/2017 ADILIA YANCEY MD Ot I87.2 VENOUS INSUFFICIENCY (CHRONIC) (PERIPHER 06/29/2017 ADILIA YANCEY MD Ot J18.9 PNEUMONIA, UNSPECIFIED ORGANISM 06/29/2017 ADILIA YANCEY MD Ot J81.1 CHRONIC PULMONARY EDEMA 06/29/2017 ADILIA YANCEY MD Ot K21.9 GASTRO-ESOPHAGEAL REFLUX DISEASE WITHOUT 06/29/2017 ADILIA YANCEY MD Ot M16.12 UNILATERAL PRIMARY OSTEOARTHRITIS, LEFT 06/29/2017 ADILIA YANCEY MD, Ot M19.012 PRIMARY OSTEOARTHRITIS, LEFT SHOULDER 06/29/2017 ADILIA YANCEY MD Ot R61 GENERALIZED HYPERHIDROSIS 06/29/2017 ADILIA YANCEY MD, Ot Z77.22 CNTCT W AND EXPSR TO ENVIRON TOBACCO SMO 06/29/2017 ADILIA YANCEY MD Ot Z79.01 [employer] (CURRENT) USE OF ANTICOAGULANT 06/29/2017 ADILIA YANCEY MD, Ot Z87.09 PERSONAL HISTORY OF OTHER DISEASES OF TH 06/29/2017 ADILIA YANCEY MD, Ot Z95.5 PRESENCE OF CORONARY ANGIOPLASTY IMPLANT 06/29/2017 ADILIA YANCEY MD Ot Z99.81 DEPENDENCE ON SUPPLEMENTAL OXYGEN 06/30/2017 ADILIA YANCEY MD Ot E78.00 PURE HYPERCHOLESTEROLEMIA, UNSPECIFIED 06/30/2017 ADILIA YANCEY MD Ot F03.90 UNSPECIFIED DEMENTIA WITHOUT BEHAVIORAL 06/30/2017 ADILIA YANCEY MD Ot F32.9 MAJOR DEPRESSIVE DISORDER, SINGLE EPISOD 06/30/2017 ADILIA YANCEY MD Ot F41.9 ANXIETY DISORDER, UNSPECIFIED 06/30/2017 ADILIA YANCEY MD Ot 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, UNSPECIFIED 06/30/2017 ADILIA YANCEY MD Ot H40.9 UNSPECIFIED GLAUCOMA 06/30/2017 ADILIA YANCEY MD Ot I10 ESSENTIAL (PRIMARY) HYPERTENSION 06/30/2017 ADILIA YANCEY MD Ot I25.10 ATHSCL HEART DISEASE OF [place] CORONARY 06/30/2017 ADILIA YANCEY MD Ot I48.0 PAROXYSMAL ATRIAL FIBRILLATION 06/30/2017 ADILIA YANCEY MD Ot I87.2 VENOUS INSUFFICIENCY (CHRONIC) (PERIPHER 06/30/2017 ADILIA YANCEY MD Ot J18.9 PNEUMONIA, UNSPECIFIED ORGANISM 06/30/2017 ADILIA YANCEY MD, Ot J81.1 CHRONIC PULMONARY EDEMA 06/30/2017 ADILIA YANCEY MD Ot K21.9 GASTRO-ESOPHAGEAL REFLUX DISEASE WITHOUT 06/30/2017 ADILIA YANCEY MD Ot M16.12 UNILATERAL PRIMARY OSTEOARTHRITIS, LEFT 06/30/2017 ADILIA YANCEY MD, Ot M19.012 PRIMARY OSTEOARTHRITIS, LEFT SHOULDER 06/30/2017 ADILIA YANCEY MD, Ot R61 GENERALIZED HYPERHIDROSIS 06/30/2017 ADILIA YANCEY MD, Ot Z77.22 CNTCT W AND EXPSR TO ENVIRON TOBACCO SMO 06/30/2017 ADILIA YANCEY MD, Ot Z79.01 CORRECTION (CURRENT) USE OF ANTICOAGULANT 06/30/2017 ADILIA YANCEY MD, Ot Z87.09 PERSONAL HISTORY OF OTHER DISEASES OF TH 06/30/2017 ADILIA YANCEY MD, Ot Z95.5 PRESENCE OF CORONARY ANGIOPLASTY IMPLANT 06/30/2017 ADILIA YANCEY MD, Ot Z99.81 DEPENDENCE ON SUPPLEMENTAL OXYGEN Procedures There is no data. Results Test [...] - 03/13/17 05:42 QUANTITY OF GROWTH Isolated [facility] Bacterial blood culture [id number] [facility] Bacterial blood culture - 03/13/17 06:10 Bacterial blood culture NG [facility] Influenza virus A and B antigen detection - 03/13/17 06:46 FLU RESULT NEGATIVE FOR INFLUENZA A AND B ANTIGENS BY IA [facility] Complete blood count (CBC) with automated [...] INFLUENZA A AND B ANTIGENS BY IA [facility] Magnesium - 06/23/17 22:14 Magnesium 2.0 mg/dL 1.8-2.4 Serum or plasma troponin i.cardiac measurement (mass/volume) - 06/23/17 22:14 Serum or plasma troponin i.cardiac measurement (mass/volume) < ng/ mL <0.30 Serum or plasma lithium measurement (moles/volume) - 06/23/17 22:14 BNP level 186.8 pg/mL <100.0 Bacterial blood culture - 06/23/17 22:14 Bacterial blood culture NG NRG Complete urinalysis with reflex to culture - [...] urinalysis with reflex to culture NO NRG Bacterial blood culture - 06/23/17 22:55 Bacterial blood culture NG NRG Complete blood count (CBC) with automated white blood cell (WBC) differential - 06/24/17 05:45 Blood leukocytes automated count (number/volume) 6.0 10*3/uL 4.3-11.0 Blood erythrocytes automated count (number/volume) 3.77 10*6/uL 4.35-5.85 Venous blood hemoglobin measurement (mass/volume) 12.4 g/dL 13.3-17.7 Blood hematocrit (volume fraction) 37 % 40-54 Automated erythrocyte mean corpuscular volume 97 [foz_us] 80-99 Automated erythrocyte mean corpuscular hemoglobin (mass per erythrocyte) 33 pg 25-34 Automated erythrocyte mean corpuscular hemoglobin concentration measurement ( mass/volume) 34 g/dL 32-36 Automated erythrocyte distribution width ratio 13.7 % 10.0-14.5 Automated blood platelet count (count/volume) 201 10*3/uL 130-400 Automated blood platelet mean volume measurement 10.7 [foz_us] 7.4-10.4 Automated blood neutrophils/100 leukocytes 90 % 42-75 Automated blood lymphocytes/100 leukocytes 8 % 12-44 Blood monocytes/100 leukocytes 1 % 0-12 Automated blood eosinophils/100 leukocytes 0 % 0-10 Automated blood basophils/100 leukocytes 0 % 0-10 Blood neutrophils automated count (number/volume) 5.4 10*3 1.8-7.8 Blood lymphocytes automated count (number/volume) 0.5 10*3 1.0-4.0 Blood monocytes automated count (number/volume) 0.1 10*3 0.0-1.0 Automated eosinophil count 0.0 10*3/uL 0.0-0.3 Automated blood basophil count (count/volume) 0.0 10*3/uL 0.0-0.1 Comprehensive metabolic panel - 06/24/17 05:45 Serum or plasma sodium measurement (moles/volume) 140 mmol/L 135-145 Serum or plasma potassium measurement (moles/volume) 4.0 mmol/L 3.6-5.0 Serum or plasma chloride measurement (moles/volume) 106 mmol/L 98-107 Carbon dioxide 25 mmol/L 21-32 Serum or plasma anion gap determination (moles/volume) 9 mmol/L 5-14 Serum or plasma urea nitrogen measurement (mass/volume) 20 mg/dL 7-18 Serum or plasma creatinine measurement (mass/volume) 1.12 mg/dL 0.60-1.30 Serum or plasma urea nitrogen/creatinine mass ratio 18 NRG Serum or plasma creatinine measurement with calculation of estimated glomerular filtration rate > NRG Serum or plasma glucose measurement (mass/volume) 165 mg/dL 70-105 Serum or plasma calcium measurement (mass/volume) 8.8 mg/dL 8.5-10.1 Serum or plasma total bilirubin measurement (mass/volume) 0.5 mg/dL 0.1-1.0 Serum or plasma alkaline phosphatase measurement (enzymatic activity/volume) 161 U/L 40-136 Serum or plasma aspartate aminotransferase measurement (enzymatic activity/ volume) 28 U/L 5-34 Serum or plasma alanine aminotransferase measurement (enzymatic activity/volume ) 50 U/L 0-55 Serum or plasma protein measurement (mass/volume) 6.6 g/dL 6.4-8.2 Serum or plasma albumin measurement (mass/volume) 3.4 g/dL 3.2-4.5 PT panel in platelet poor plasma by coagulation assay - 06/26/17 08:49 Prothrombin time (PT) in platelet poor plasma by coagulation assay 28.1 s 12.2-14.7 INR in platelet poor plasma or blood by coagulation assay 2.6 0.8-1.4 Whole blood basic metabolic panel - 06/26/17 08:49 Serum or plasma sodium measurement (moles/volume) 140 mmol/L 135-145 Serum or plasma potassium measurement (moles/volume) 3.9 mmol/L 3.6-5.0 Serum or plasma chloride measurement (moles/volume) 104 mmol/L 98-107 Carbon dioxide 23 mmol/L 21-32 Serum or plasma anion gap determination (moles/volume) 13 mmol/L 5-14 Serum or plasma urea nitrogen measurement (mass/volume) 32 mg/dL 7-18 Serum or plasma creatinine measurement (mass/volume) 0.99 mg/dL 0.60-1.30 Serum or plasma urea nitrogen/creatinine mass ratio 32 NRG Serum or plasma creatinine measurement with calculation of estimated glomerular filtration rate > NRG Serum or plasma glucose measurement (mass/volume) 114 mg/dL 70-105 Serum or plasma calcium measurement (mass/volume) 8.9 mg/dL 8.5-10.1 Complete blood count (CBC) with automated white blood cell (WBC) differential - 06/27/17 12:59 Blood leukocytes automated count (number/volume) 8.7 10*3/uL 4.3-11.0 Blood erythrocytes automated count (number/volume) 3.94 10*6/uL 4.35-5.85 Venous blood hemoglobin measurement (mass/volume) 12.9 g/dL 13.3-17.7 Blood hematocrit (volume fraction) 38 % 40-54 Automated erythrocyte mean corpuscular volume 96 [foz_us] 80-99 Automated erythrocyte mean corpuscular hemoglobin (mass per erythrocyte) 33 pg 25-34 Automated erythrocyte mean corpuscular hemoglobin concentration measurement ( mass/volume) 34 g/dL 32-36 Automated erythrocyte distribution width ratio 13.6 % 10.0-14.5 Automated blood platelet count (count/volume) 219 10*3/uL 130-400 Automated blood platelet mean volume measurement 10.3 [foz_us] 7.4-10.4 Automated blood neutrophils/100 leukocytes 70 % 42-75 Automated blood lymphocytes/100 leukocytes 17 % 12-44 Blood monocytes/100 leukocytes 12 % 0-12 Automated blood eosinophils/100 leukocytes 1 % 0-10 Automated blood basophils/100 leukocytes 0 % 0-10 Blood neutrophils automated count (number/volume) 6.0 10*3 1.8-7.8 Blood lymphocytes automated count (number/volume) 1.5 10*3 1.0-4.0 Blood monocytes automated count (number/volume) 1.1 10*3 0.0-1.0 Automated eosinophil count 0.0 10*3/uL 0.0-0.3 Automated blood basophil count (count/volume) 0.0 10*3/uL 0.0-0.1 Comprehensive metabolic panel - 06/27/17 12:59 Serum or plasma sodium measurement (moles/volume) 140 mmol/L 135-145 Serum or plasma potassium measurement (moles/volume) 4.0 mmol/L 3.6-5.0 Serum or plasma chloride measurement (moles/volume) 102 mmol/L 98-107 Carbon dioxide 28 mmol/L 21-32 Serum or plasma anion gap determination (moles/volume) 10 mmol/L 5-14 Serum or plasma urea nitrogen measurement (mass/volume) 27 mg/dL 7-18 Serum or plasma creatinine measurement (mass/volume) 0.97 mg/dL 0.60-1.30 Serum or plasma urea nitrogen/creatinine mass ratio 28 NRG Serum or plasma creatinine measurement with calculation of estimated glomerular filtration rate > NRG Serum or plasma glucose measurement (mass/volume) 107 mg/dL 70-105 Serum or plasma calcium measurement (mass/volume) 8.4 mg/dL 8.5-10.1 Serum or plasma total bilirubin measurement (mass/volume) 0.9 mg/dL 0.1-1.0 Serum or plasma alkaline phosphatase measurement (enzymatic activity/volume) 125 U/L 40-136 Serum or plasma aspartate aminotransferase measurement (enzymatic activity/ volume) 47 U/L 5-34 Serum or plasma alanine aminotransferase measurement (enzymatic activity/volume ) 58 U/L 0-55 Serum or plasma protein measurement (mass/volume) 6.3 g/dL 6.4-8.2 Serum or plasma albumin measurement (mass/volume) 3.4 g/dL 3.2-4.5 Serum or plasma lithium measurement (moles/volume) - 06/27/17 12:59 BNP level 160.7 pg/mL <100.0 Sputum Gram stain - 06/28/17 11:25 GRAM STAIN SPUTUM AND MIXED BACTERIAL VITALIY [facility] Bacterial sputum culture - 06/28/17 11:25 Bacterial sputum culture NORMAL [facility] Complete blood count (CBC) with automated white blood cell (WBC) differential - 06/29/17 03:45 Blood leukocytes automated count (number/volume) 7.5 10*3/uL 4.3-11.0 Blood erythrocytes automated count (number/volume) 3.48 10*6/uL 4.35-5.85 Venous blood hemoglobin measurement (mass/volume) 11.3 g/dL 13.3-17.7 Blood hematocrit (volume fraction) 33 % 40-54 Automated erythrocyte mean corpuscular volume 95 [foz_us] 80-99 Automated erythrocyte mean corpuscular hemoglobin (mass per erythrocyte) 33 pg 25-34 Automated erythrocyte mean corpuscular hemoglobin concentration measurement ( mass/volume) 34 g/dL 32-36 Automated erythrocyte distribution width ratio 12.9 % 10.0-14.5 Automated blood platelet count (count/volume) 184 10*3/uL 130-400 Automated blood platelet mean volume measurement 10.7 [foz_us] 7.4-10.4 Automated blood neutrophils/100 leukocytes 73 % 42-75 Automated blood lymphocytes/100 leukocytes 19 % 12-44 Blood monocytes/100 leukocytes 8 % 0-12 Automated blood eosinophils/100 leukocytes 0 % 0-10 Automated blood basophils/100 leukocytes 0 % 0-10 Blood neutrophils automated count (number/volume) 5.5 10*3 1.8-7.8 Blood lymphocytes automated count (number/volume) 1.4 10*3 1.0-4.0 Blood monocytes automated count (number/volume) 0.6 10*3 0.0-1.0 Automated eosinophil count 0.0 10*3/uL 0.0-0.3 Automated blood basophil count (count/volume) 0.0 10*3/uL 0.0-0.1 Activated partial thromboplastin time (aPTT) in platelet poor plasma bycoagulation assay - 06/29/17 03:45 Activated partial thromboplastin time (aPTT) in platelet poor plasma bycoagulation assay 35 s 24-35 Comprehensive metabolic panel - 06/29/17 03:45 Serum or plasma sodium measurement (moles/volume) 138 mmol/L 135-145 Serum or plasma potassium measurement (moles/volume) 4.1 mmol/L 3.6-5.0 Serum or plasma chloride measurement (moles/volume) 108 mmol/L 98-107 Carbon dioxide 24 mmol/L 21-32 Serum or plasma anion gap determination (moles/volume) 6 mmol/L 5-14 Serum or plasma urea nitrogen measurement (mass/volume) 26 mg/dL 7-18 Serum or plasma creatinine measurement (mass/volume) 0.80 mg/dL 0.60-1.30 Serum or plasma urea nitrogen/creatinine mass ratio 33 NRG Serum or plasma creatinine measurement with calculation of estimated glomerular filtration rate > NRG Serum or plasma glucose measurement (mass/volume) 104 mg/dL 70-105 Serum or plasma calcium measurement (mass/volume) 8.3 mg/dL 8.5-10.1 Serum or plasma total bilirubin measurement (mass/volume) 0.8 mg/dL 0.1-1.0 Serum or plasma alkaline phosphatase measurement (enzymatic activity/volume) 111 U/L 40-136 Serum or plasma aspartate aminotransferase measurement (enzymatic activity/ volume) 24 U/L 5-34 Serum or plasma alanine aminotransferase measurement (enzymatic activity/volume ) 41 U/L 0-55 Serum or plasma protein measurement (mass/volume) 5.4 g/dL 6.4-8.2 Serum or plasma albumin measurement (mass/volume) 3.0 g/dL 3.2-4.5 PT panel in platelet poor plasma by coagulation assay - 06/29/17 12:07 Prothrombin time (PT) in platelet poor plasma by coagulation assay 29.6 s 12.2-14.7 INR in platelet poor plasma or blood by coagulation assay 2.8 0.8-1.4 Encounters ACCT No. Visit Date/Time Discharge Status Pt. Type Provider Facility Loc./Unit Complaint [id number] 06/24/2017 13:58:00 06/30/2017 15:00:00 DIS Inpatient NAYE ÁLVAREZ, ADILIA Phillips [facility] 4TH PNEUMONIA;CHF;COPD EXACERBATION;FAILURE OF [id number] 03/13/2017 05:25:00 03/13/2017 08:23:00 DIS Emergency SONIA ÁLVAREZ, RUKHSANA Winston [facility] ER SICK X 5 DAYS,FEVERISH ,COUGH [id number] 10/27/2013 09:48:00 12/09/2013 15:07:00 DIS Outpatient ALIA ÁLVAREZ, GERALD Lacy 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
== END 2017-06-30 15:00 | DRG 194 ==
LOC: EDUNIT# 22:02 → ER 22:03 → 4TH 22:04 → UNDOADMOB 06-24 00:15 → 4TH 06-24 00:15 → INTOOBSV 06-24 13:24 → OBSVTOIN 06-24 13:24 → INTOOBSV 06-24 13:58 → OBSVTOIN 06-24 13:58 → UNDODISIN 06-30 15:00
PROVIDERS: ADMIT Internal Medicine; ATTEND Internal Medicine
DX: J18.9 Pneumonia, unspecified organism (principal); F03.90 Unspecified dementia, unspecified severity, without behavioral disturbance, psychotic disturbance, mood disturbance, and anxiety; J81.1 Chronic pulmonary edema; I48.0 Paroxysmal atrial fibrillation; I25.10 Atherosclerotic heart disease of native coronary artery without angina pectoris; E78.00 Pure hypercholesterolemia, unspecified; I10 Essential (primary) hypertension; K21.9 Gastro-esophageal reflux disease without esophagitis; M16.12 Unilateral primary osteoarthritis, left hip; M19.012 Primary osteoarthritis, left shoulder; G61.9 Inflammatory polyneuropathy, unspecified; H40.9 Unspecified glaucoma; I87.2 Venous insufficiency (chronic) (peripheral); F41.9 Anxiety disorder, unspecified; F32.9 Major depressive disorder, single episode, unspecified; R61 Generalized hyperhidrosis; R11.0 Nausea; R19.4 Change in bowel habit; T36.95XA Adverse effect of unspecified systemic antibiotic, initial encounter; Z99.81 Dependence on supplemental oxygen; Z95.5 Presence of coronary angioplasty implant and graft; Z87.09 Personal history of other diseases of the respiratory system; Z79.01 Long term (current) use of anticoagulants; Z77.22 Contact with and (suspected) exposure to environmental tobacco smoke (acute) (chronic)
CPT/HCPCS: 36415; 51702; 71045; 71046; 80048; 80053; 81000; 83605; 83735; 83880; 84484; 85025; 85610; 85730; 87040; 87070; 87205; 87804; 93005; 93041; 94640; 94760; 96365; 96375; G0378